=== PATIENT | female | born 1970 | race Caucasian/White ===

== ENCOUNTER → 2018-12-05 07:24 | Outpatient (CLI) | payer MEDICARE, SELFPAY ==
--- NOTE | 2018-12-05 07:37 | CT_ITS ---
PROCEDURE: CT ABDOMEN PELVIS W CON CLINICAL HISTORY: REGURGITATION,TUBE FEEDING DIET, PULMONARY ASPIRATION COMPARISON: No exams were available for comparison TECHNIQUE: 75 cc of intravenous contrast was utilized. Axial images obtained with sagittal and coronal reformats. All CT scans at the facility use one or more dose reduction, viz: automated exposure control, ma/kV adjustment per patient size (including targeted exams where dose is matched to indication, i.e. head), or iterative reconstruction technique. FINDINGS: Lower lung covarrubias show some linear strands hazy increased density in the posterior segment of both lower lobes. Liver, gallbladder, pancreas and adrenal glands are normal. Spleen is normal except there is a 5 millimeter round hypodense focus along the anterior midportion of the spleen. The remainder of the spleen is normal. Kidneys are normal. There is no aortic dilatation. The balloon at the tip of the gastrostomy tube is within the inferior lumen of the distal body of the stomach area. The sacrum is in the right upper quadrant of the abdomen and the appendix is not well visualized. There is no free air or ascites. There is a large amount of fecal density in the rectosigmoid area, and rectum causing displacement of the uterus towards the left anterior aspect. The uterus has a lobulated contour with a 2.3 centimeter hypodense nodule from the uterine fundus. There is no inflammatory changes or fluid in the pelvis. There is no acute osseous process. IMPRESSION: Bilateral lower lobe lung linear atelectasis or scarring. Gastrostomy tube is within the lumen of the stomach. Nonspecific small 5 millimeter hypodense splenic lesion. This is likely benign although consider follow-up CT at 6 months to confirm stability. Nonvisualized appendix. Large amount of feces in the sigmoid and rectal area with mass effect upon the uterus. Uterine fundal fibroid discussed above. Dictated by: Geovanny Balderrama 12/05/2018 10:36 Electronically signed by Geovanny Balderrama in [place] 12/05/2018 10:36
== END ==
PROVIDERS: PCP Family Medicine; Visit Provider Nurse Practitioner Family
DX: R11.10 Vomiting, unspecified (principal); Z78.9 Other specified health status; T65.94XA Toxic effect of unspecified substance, undetermined, initial encounter
CPT/HCPCS: 74177; Q9967

== ENCOUNTER → 2019-04-02 11:14 | Outpatient (POV) | payer MEDICARE, SELFPAY | PROVIDERS: Visit Provider Nurse Practitioner Family | DX: Z00.00 Encounter for general adult medical examination without abnormal findings (principal) ==

== ENCOUNTER → 2019-09-17 10:16 | Outpatient (POV) | payer MEDICARE, MEDICAID, SELFPAY | PROVIDERS: Visit Provider Nurse Practitioner Family | DX: Z00.00 Encounter for general adult medical examination without abnormal findings (principal) ==

== ENCOUNTER → 2020-03-17 10:48 | Outpatient (POV) | payer MEDICARE, MEDICAID, SELFPAY | PROVIDERS: Visit Provider Nurse Practitioner Family | DX: Z00.00 Encounter for general adult medical examination without abnormal findings (principal) ==

== ENCOUNTER 2022-12-11 11:34 | Emergency (ER) | payer MEDICARE, MEDICAID, SELFPAY ==
[2022-12-11 11:34] VITALS: BP 117/66; PULSE 70; RESP 18; TEMP 37.1; O2SAT 93; BMI 22.2
--- NOTE | 2022-12-11 11:46 | PC.NURSE ---
Dr. Rae at bs for pt eval
--- NOTE | 2022-12-11 11:49 | XR_ITS ---
PROCEDURE INFORMATION: Exam: XR Abdomen Exam date and time: 12/11/2022 12:37 PM Age: 52 years old Clinical indication: Device placement; Gi device; Gastrostomy, other; Prior surgery; Surgery date: 6+ months; Surgery type: G tube placement; Additional info: G tube displacement, determine if g tube is still working. Image of immediate injection of gastroview. TECHNIQUE: Imaging protocol: Radiologic exam of the abdomen. Views: Frontal supine view of the abdomen. 1 View. COMPARISON: CT ABDOMEN PELVIS W CON 12/05/2018 9:41 AM FINDINGS: Tubes, catheters and devices: Contrast opacification of the gastric tube, gastric lumen and proximal duodenum lumen. Gastrointestinal tract: Dilated gas-filled colon. Sigmoid colon and rectum are beyond the field of view for the study. Bones/joints: Unremarkable. IMPRESSION: 1. Gastric tube located within the stomach. 2. Dilated gas-filled colon may indicate distal obstruction. Sigmoid colon and rectum are beyond the field of view for the study.
--- NOTE | 2022-12-11 11:50 | HMH.EDGENADL ---
Discharge Plan Disposition Patient Disposition: Xfer SNF Condition: Good Prescriptions Prescriptions: No Action polyethylene glycol 3350 17 GM powder in packet 17 gm G-tube DAILY citalopram 10 MG tablet 10 mg G-tube DAILY Rx Instructions: GIVE WITH 20MG TABLET TO EQUAL 30MG spironolactone 100 MG tablet 100 mg G-tube DAILY simvastatin 10 MG tablet 10 mg G-tube DAILY aspirin 81 MG tablet,delayed release (DR/EC) 81 mg G-tube DAILY citalopram 20 MG tablet 20 mg G-tube DAILY Rx Instructions: GIVE WITH 10MG TABLET TO EQUAL 30MG valproic acid (as sodium salt) 250 MG/5ML solution 125 mg G-tube HS baclofen 10 MG tablet 10 mg G-tube BID ranitidine HCl 150 MG tablet 150 mg G-tube BID diphenhydramine HCl 25 MG tablet 12.5 mg G-tube BID dipyridamole 50 MG tablet 50 mg G-tube DAILY metoprolol tartrate 25 MG tablet 25 mg G-tube DAILY nitrofurantoin monohyd/m-cryst 100 MG capsule 100 mg G-tube BID Rx Instructions: START DATE 03/25/19 TAKE FOR 10 DAYS Lactobacillus acidoph-L.bulgar 1 EACH tablet 1 tab G-tube BID dextromethorphan-quinidine 20 MG-10MG capsule 1 tab G-tube BID calcium-vitamin D3-vitamin K 1 EACH tablet,chewable 800 mg G-tube DAILY guaifenesin 600 MG tablet extended release 12hr 600 mg PO BID prucalopride 2 MG tablet 2 mg G-tube DAILY Miscellaneous [Unknown Home Medication] 1 EACH Each 60 ml G-tube BID Rx Instructions: HOUSE SUPPLEMENT 60 ML BID FOR WEIGHT MANAGEMENT acetaminophen 325 MG suppository 650 mg * Q4H PRN (Reason: pain/fever) ipratropium-albuterol 3 ML solution for nebulization 3 ml IH DAILY PRN (Reason: breathing) albuterol sulfate 2.5 MG/NEB solution for nebulization 2.5 mg IH DAILY PRN (Reason: breathing) bisacodyl 10 MG suppository 10 mg RC DAILYP PRN (Reason: Constipation) hyoscyamine sulfate 0.125 MG tablet 0.125 mg PO DAILY PRN (Reason: bowels) ibuprofen 100 MG/5 ML suspension 600 mg PO DAILY PRN (Reason: pain) peg 400-propylene glycol 10 ML drops,gel 10 ml OP DAILY PRN (Reason: eyes) Referrals Follow up/Referrals: Rogelio Kirk [Primary Care Provider] - See instructions Griffin Livingston MD [Staff Physician] - See instructions (She has G-tube in place, placed 14 years ago, has been lost to follow-up and has had G-tube replaced multiple times in many different emergency departments, mother of the patient would like this followed up in clinic for possible replacement) Activity Restrictions/Add. Instructions Additional Instructions/Restrictions: Please follow-up with your primary care provider. Please return to the emergency department if you develop any new or worsening symptoms or become concerned for your health. Patient is appropriate for transfer back to her longterm facility. Clinical Impressions Clinical Impression: Dislodged gastrostomy tube Discharge ED Provider: Mehrdad Rae I General Adult HPI General Chief complaint: Recheck/Abnormal Lab/Rx Stated complaint: g tube dislodged Time Seen by Provider: 12/11/22 11:49 History of Present Illness HPI narrative: Patient is a 52-year-old female with history of stroke, G-tube dependence presenting to the emergency department from her longterm with G-tube displacement. History was largely conducted with the transportation crew given patient's baseline mental status. They report that patient's G-tube was displaced this morning. Patient is otherwise been in her normal state of health, no other new complaints. Denies any recent vomiting. Patient does receive tube feeds. Patient normally has an 18 [place] G-tube in place. Related Data Home Medications Medication Instructions Recorded Confirmed Lactobacillus acidoph-L.bulgaricus 1 tab G-tube BID PROBIOTIC 04/05/19 04/11/19 1 million cell tablet Miscellaneous [Unknown Home
[2022-12-11 12:09] VITALS: BP 117/66; PULSE 70; RESP 18; TEMP 37.1; O2SAT 93
--- NOTE | 2022-12-11 12:21 | PC.NURSE ---
RAD at BS for KUB
--- NOTE | 2022-12-11 12:23 | PC.NURSE ---
rad at bs for portable xray
[2022-12-11 12:30] VITALS: BP 138/74; PULSE 70; O2SAT 96
[2022-12-11 13:00] VITALS: BP 133/82; PULSE 72; O2SAT 94
--- NOTE | 2022-12-11 13:28 | PC.NURSE ---
called EMS for transport back to [facility]
--- NOTE | 2022-12-11 13:40 | PC.NURSE ---
Called report to [facility] to [place] [facility]
--- NOTE | 2022-12-11 13:58 | PC.NURSE ---
[facility] here for pt transport back [place]
[2022-12-11 14:17] VITALS: BP 117/66; PULSE 70; RESP 18; TEMP 37.1; O2SAT 93
== END 2022-12-11 14:17 ==
PROVIDERS: Emergency Provider Emergency Medicine; PCP Family Medicine
DX: T85.528A Displacement of other gastrointestinal prosthetic devices, implants and grafts, initial encounter (principal); I25.10 Atherosclerotic heart disease of native coronary artery without angina pectoris; I11.9 Hypertensive heart disease without heart failure; K21.9 Gastro-esophageal reflux disease without esophagitis; E78.5 Hyperlipidemia, unspecified; Z86.73 Personal history of transient ischemic attack (TIA), and cerebral infarction without residual deficits
CPT/HCPCS: 74018; 99284

== ENCOUNTER 2023-01-08 09:52 | Emergency (ER) | payer MEDICARE, MEDICAID, SELFPAY ==
[2023-01-08 09:52] VITALS: BP 105/70; PULSE 73; RESP 17; TEMP 36.5; O2SAT 95; BMI 20.1
--- NOTE | 2023-01-08 10:05 | PC.NURSE ---
dr villarreal at bedside for evaluation
--- NOTE | 2023-01-08 10:05 | PC.NURSE ---
Dr. Turner at BS for pt eval
--- NOTE | 2023-01-08 10:10 | PC.NURSE ---
G-TUBE FLUSHED WITH ABOUT 40MLS OF STERILE WATER WITHOUT DIFFICULTY. PLACEMENT VERIFIED WITH AUSCULTATION AND RETURN OF FEEDING. PT TOLERATED WELL
--- NOTE | 2023-01-08 10:19 | PC.NURSE ---
mother at bedside
[2023-01-08 10:30] VITALS: BP 121/68; PULSE 68; O2SAT 96
--- NOTE | 2023-01-08 10:45 | HMH.EDGENADL ---
Discharge Plan Disposition Patient Disposition: Home, Self-Care Prescriptions Prescriptions: No Action polyethylene glycol 3350 17 GM powder in packet 17 g G-tube DAILY citalopram 10 MG tablet 10 mg G-tube DAILY Rx Instructions: GIVE WITH 20MG TABLET TO EQUAL 30MG spironolactone 100 MG tablet 100 mg G-tube DAILY simvastatin 10 MG tablet 10 mg G-tube DAILY aspirin 81 MG tablet,delayed release (DR/EC) 81 mg G-tube DAILY citalopram 20 MG tablet 20 mg G-tube DAILY Rx Instructions: GIVE WITH 10MG TABLET TO EQUAL 30MG valproic acid (as sodium salt) 250 MG/5ML solution 125 mg G-tube HS baclofen 10 MG tablet 10 mg G-tube BID ranitidine HCl 150 MG tablet 150 mg G-tube BID diphenhydramine HCl 25 MG tablet 12.5 mg G-tube BID dipyridamole 50 MG tablet 50 mg G-tube DAILY metoprolol tartrate 25 MG tablet 25 mg G-tube DAILY nitrofurantoin monohyd/m-cryst 100 MG capsule 100 mg G-tube BID Rx Instructions: START DATE 03/25/19 TAKE FOR 10 DAYS Lactobacillus acidoph-L.bulgar 1 EACH tablet 1 tab G-tube BID dextromethorphan-quinidine 20 MG-10MG capsule 1 tab G-tube BID calcium-vitamin D3-vitamin K 1 EACH tablet,chewable 800 mg G-tube DAILY guaifenesin 600 MG tablet extended release 12hr 600 mg PO BID prucalopride 2 MG tablet 2 mg G-tube DAILY Miscellaneous [Unknown Home Medication] 1 EACH Each 60 ml G-tube BID Rx Instructions: HOUSE SUPPLEMENT 60 ML BID FOR WEIGHT MANAGEMENT acetaminophen 325 MG suppository 650 mg * Q4H PRN (Reason: pain/fever) ipratropium-albuterol 3 ML solution for nebulization 3 ml inhalation DAILY PRN (Reason: breathing) albuterol sulfate 2.5 MG/NEB solution for nebulization 2.5 mg inhalation DAILY PRN (Reason: breathing) bisacodyl 10 MG suppository 10 mg ME DAILYP PRN (Reason: Constipation) hyoscyamine sulfate 0.125 MG tablet 0.125 mg PO DAILY PRN (Reason: bowels) ibuprofen 100 MG/5 ML suspension 600 mg PO DAILY PRN (Reason: pain) peg 400-propylene glycol 10 ML drops,gel 10 ml ophthalmic (eye) DAILY PRN (Reason: eyes) Referrals Follow up/Referrals: Provider,Referral, MD [Primary Care Provider] - See instructions Activity Restrictions/Add. Instructions Additional Instructions/Restrictions: Your G-tube had a clogged Which is cleaned out and is now functioning appropriately. No other concerns noted please follow-up with Dr. Turcios and back to the emergency department with any other concerns. Clinical Impressions Clinical Impression: Gastrostomy tube dysfunction Discharge ED Provider: Nilesh Turner General Adult HPI General Chief complaint: Recheck/Abnormal Lab/Rx Stated complaint: G-tube displaced Time Seen by Provider: 01/08/23 10:05 Mode of Arrival: EMS Source of Information: EMS Limitations: No Limitations Description of Symptoms (Recalled from ER Triage Doc. by RN): PT BROUGHT IN VIA EMS FROM [facility], STAFF REPORTS BLEEDING FROM G-TUBE SITE AND UNABLE TO FLUSH G-TUBE THIS AM. PT WITHOUT COMPLAINTS History of Present Illness HPI narrative: Patient is a 52-year-old female brought in from [facility] has a history of being G-tube dependent and was sent to the emergency department because her G-tube was unable to be flushed and therefore medications were not able to be given. Related Data Home Medications Medication Instructions Recorded Confirmed Lactobacillus acidoph-L.bulgaricus 1 tab G-tube BID PROBIOTIC 04/05/19 01/07/23 1 million cell tablet Miscellaneous [Unknown Home 60 ml G-tube BID WEIGHT MANAGEMENT 04/05/19 01/07/23 Medication] acetaminophen 325 mg rectal 650 mg * Q4H PRN pain/fever 04/05/19 01/07/23 suppository albuterol sulfate 2.5 mg/3 mL 2.5 mg inhalation DAILY PRN 04/05/19 01/07/23 (0.083 %) solution for nebulization breathing aspirin 81 mg tablet
[2023-01-08 11:00] VITALS: BP 118/65; PULSE 74; O2SAT 93
[2023-01-08 11:10] VITALS: BP 118/65; PULSE 81; RESP 16; TEMP 36.6; O2SAT 93
--- NOTE | 2023-01-08 11:11 | PC.NURSE ---
REPORT CALLED TO MELVA AT [facility].
--- NOTE | 2023-01-08 11:13 | PC.NURSE ---
[facility] ems here to transport pt back to [facility].
== END 2023-01-08 11:25 | disposition home or self-care (01) ==
PROVIDERS: Emergency Provider Student in an Organized Health Care Education/Training Program
DX: K94.23 Gastrostomy malfunction (principal); I25.10 Atherosclerotic heart disease of native coronary artery without angina pectoris; I11.9 Hypertensive heart disease without heart failure; E78.5 Hyperlipidemia, unspecified; K21.9 Gastro-esophageal reflux disease without esophagitis; K22.4 Dyskinesia of esophagus; Z86.73 Personal history of transient ischemic attack (TIA), and cerebral infarction without residual deficits
CPT/HCPCS: 99282

== ENCOUNTER 2024-03-14 16:16 | Observation (INO) | payer MEDICARE, MEDICAID, SELFPAY ==
[2024-03-14 16:16] VITALS: BP 138/85; PULSE 103; RESP 20; TEMP 36.2; O2SAT 91; BMI 22.8
[2024-03-14 16:30] VITALS: BP 147/87; PULSE 104; O2SAT 94
--- NOTE | 2024-03-14 16:55 | ED_ITS ---
Discharge Plan Disposition Patient Disposition: Admitted Clinical Impressions Clinical Impression: Constipation Discharge ED Provider: Biju [facility] Adult HPI General Chief complaint: Recheck/Abnormal Lab/Rx Stated complaint: Abdominal Distension Time Seen by Provider: 03/14/24 16:55 Mode of Arrival: EMS Source of Information: EMS and Medical Record Limitations: Language Barrier Description of Symptoms (Recalled from ER Triage Doc. by RN): Pt. presents to the ED via EMS due to leakage around her GTube. She comes from [facility]. She is non-verbal, but the jail reports abdominal distension and hypoactive in bowel sounds since this morning. When asked if she has abdominal pain, she shakes her head no. History of Present Illness HPI narrative: Patient is a 53 nonverbal female with history of G-tube placement who presents for abdominal distention. History unable to be obtained by patient due to nonverbal status however mother reports concerns for worsening abdominal distention over the past day. No fevers or chills. Patient is overall not appear to be in pain. No known exacerbating relieving factors. No other concerns at this time. Please note that above description of symptoms, in this electronic medical record under categorization of recalled from ER triage doctor by RN are reflective of an initial nursing assessment, however, is not reflective of my full history and physical exam that was personally taken and clarified. Consequentially, this preceding description of symptoms, which may include the patient's categorized chief complaint in the EMR, do not reflect my personal clinical impression, and the ultimate description of history of present illness and patient stated complaints should be deferred to this section of the note. Unless stated otherwise or congruent with this section of the note, additional signs, symptoms, or incongruence should be interpreted as inaccurate with my clinical impression. Related Data Home Medications ?Medication ?Instructions ?Recorded ?Confirmed Lactobacillus acidoph-L.bulgaricus 1 tab G-tube BID PROBIOTIC 04/05/19 03/15/24 1 million cell tablet Miscellaneous [Unknown Home 60 ml G-tube BID 04/05/19 03/15/24 Medication] aspirin 81 mg tablet,delayed 81 mg G-tube DAILY 04/05/19 03/15/24 release baclofen 10 mg tablet 10 mg G-tube BID 04/05/19 03/15/24 calcium 500 mg-vitamin D3 1,000 800 mg G-tube DAILY Supplement 04/05/19 03/15/24 unit-vitamin K 40 mcg chewable tablet citalopram 10 mg tablet 10 mg G-tube DAILY 04/05/19 03/15/24 citalopram 20 mg tablet 20 mg G-tube DAILY 04/05/19 03/15/24 dextromethorphan 20 mg-quinidine 1 tab G-tube BID 04/05/19 03/15/24 10 mg capsule dipyridamole 50 mg tablet 50 mg G-tube DAILY CVA 04/05/19 03/15/24 peg 400-propylene glycol 0.4 %-0.3 10 ml ophthalmic (eye) DAILY PRN 04/05/19 03/15/24 % eye gel drops Dry Eyes polyethylene glycol 3350 17 gram 17 g G-tube DAILY 04/05/19 03/15/24 oral powder packet prucalopride 2 mg tablet 2 mg G-tube DAILY 04/05/19 03/15/24 simvastatin 10 mg tablet 10 mg G-tube DAILY Cholesterol 04/05/19 03/15/24 valproic acid (as sodium salt) 250 125 mg G-tube HS 04/05/19 03/15/24 mg/5 mL oral solution erythromycin ethylsuccinate 200 250 mg PO DAILY 03/15/24 03/15/24 mg/5 mL oral powder for suspension famotidine 20 mg tablet 20 mg PO BID 03/15/24 03/15/24 ferrous sulfate 300 mg (60 mg 160 mg PO MOWEFR 03/15/24 03/15/24 iron)/5 mL oral liquid geriatric multivitamin-min 1 tab PO DAILY 03/15/24 03/15/24 guaifenesin 100 mg/5 mL oral 600 mg PO BID 03/15/24 03/15/24 liquid (Adult Tussin Chest Congestion) linaclotide 145 mcg capsule 145 mcg PO DAILY 03/15/24 03/15/24 (Linzess) omega-3 fatty acids 1,000 mg 1,000 mg PO DAILY 03/15/24 03/15/24 capsule sodium phosphates 19 gram-7 118 ml WI DAILY PRN Constipation 03/15/24 03/15/24 gram/118 mL enema (Fleet Enema) spironolactone 50 mg tablet 50 mg PO DAILY 03/15/24 03/15/24 Allergies Allergy/AdvReac Type Severity Reaction Status Date / Time atropine (From Lomotil) Allergy Unknown Verified 02/02/23 13:44 diphenoxylate (From Lomotil) Allergy Unknown Verified 02/02/23 13:44 Sulfa (Sulfonamide Allergy Unknown Verified 02/02/23 13:44 Antibiotics) [facility] Disclaimer: The information contained in this section may have been updated after the patient was seen, as this information can be updated by other users. Medical History Anemia Aspiration pneumonia CAD (coronary artery disease) CVA (cerebral vascular accident) Dyskinesia of esophagus Feeding by G-tube GERD (gastroesophageal reflux disease) HLD (hyperlipidemia) HTN (hypertension) Limitation due to disability Mild intellectual disabilities Social History Smoking Status: Never smoker alcohol intake: never substance use type: denies use current occupational status: disabled Travel in the last 8 weeks: None household members: none housing: assisted living facility current occupational exposures/hazards: No caffeine: No Have you lived/traveled outside [place] in past 30 days?: No Contact w/someone who lives/traveled outside US past 30 days?: No Exposure to someone with infectious disease in past 14 days?: No Do you have a fever (greater than 100.4 F or 38 C)?: No Have you tested positive for COVID-19: No Exposed to someone with COVID-19 in past 14 days?: No Do you have a sore throat?: No Do you have a cough?: No Do you have any weakness?: No Do you have any diarrhea?: No Are you experiencing any unusual bleeding?: No Do you have any muscle aches/pain?: No Do you have any abdominal pain?: Yes Are you experiencing loss of taste or smell?: No Other Medical History Have you received the Flu Vaccine for this season: Yes Have you received the Pneumonia Vaccine: No ROS Obtained: Yes other As per HPI Physical Exam General General appearance: alert and in no apparent distress Head Head exam: atraumatic and normocephalic Eye Eye exam: Present normal appearance Neck Neck exam: Present normal inspection Chest Chest inspection: Present normal inspection and symmetric chest wall rise Respiratory Respiratory exam: Present normal lung sounds bilaterally; Absent respiratory distress Cardiovascular Cardiovascular exam: Present regular rate and normal rhythm Abdominal Exam Abdominal exam: Present distention Neurological Exam Neurological exam: Present alert Psychiatric Psychiatric exam: Present normal affect Skin Skin exam: Present warm and dry Medical Decision Making Medical Records Medical records reviewed: Yes I reviewed the patient's medical records. Screening: Per USPSTF and CDC recommendations, given the prevalence of disease in our region, it is our hospital?s policy to screen for HIV and viral Hepatitis for all patients aged 18 and over and those with ongoing risk factors. [facility] Inquiry Pt receiving controlled substance: No Vital Signs: 03/14/24 16:16 03/14/24 16:30 03/14/24 17:00 Temperature 97.1 F L Temperature Source Axillary Pulse Rate 104 H 100 H Pulse Rate [Right Brachial] 103 H Respiratory Rate 20 Blood Pressure 147/87 H 146/87 H Blood Pressure [Right Arm] 138/85 Blood Pressure Mean [Right Arm] 102 Blood Pressure Source Blood Pressure Source [Right Arm] Automatic Cuff Blood Pressure Position [Right Arm] Sitting 02 Sat by Pulse Oximetry 91 L 94 L 95 Oxygen Delivery Method Room Air Room Air Room Air 03/14/24 17:30 03/14/24 18:00 03/14/24 21:01 Temperature Temperature Source Pulse Rate 105 H 95 H Pulse Rate [Right Brachial] Respiratory Rate Blood Pressure 151/97 H 158/91 H Blood Pressure [Right Arm] Blood Pressure Mean [Right Arm] Blood Pressure Source Blood Pressure Source [Right Arm] Blood Pressure Position [Right Arm] 02 Sat by Pulse Oximetry 92 L 90 L Oxygen Delivery Method Room Air 03/14/24 21:57 Temperature 97.1 F L Temperature Source Oral Pulse Rate 91 H Pulse Rate [Right Brachial] Respiratory Rate 18 Blood Pressure 153/81 H Blood Pressure [Right Arm] Blood Pressure Mean [Right Arm] Blood Pressure Source Automatic Cuff Blood Pressure Source [Right Arm] Blood Pressure Position [Right Arm] 02 Sat by Pulse Oximetry Oxygen Delivery Method Room Air Lab Data Lab Results 03/14/24 17:17: WBC 14.6 H, RBC 5.25, Hgb 14.1, Hct 44.2, MCV 84.2, MCH 26.9 L, MCHC 31.9, RDW 15.2, Plt Count 184, MPV 10.8 H, Neut % (Auto) 86.8 H, Lymph % (Auto) 4.4 L, [place] % (Auto) 8.4, Eos % (Auto) 0.0 L, Baso % (Auto) 0.1, Neut # (Auto) 12.7 H, Lymph # (Auto) 0.6 L, [place] # (Auto) 1.2 H, Eos # (Auto) 0.0, Baso # (Auto) 0.0, Sodium 140, Potassium 3.7, Chloride 103, Carbon Dioxide 27, Anion Gap 13.7, BUN 28 H, Creatinine 0.60, Estimated Creat Clear 91, Estimated GFR 105, Est GFR ( Amer) 127, Glucose 125 H, Calcium 9.2, Total Bilirubin 0.5, AST 39 H, ALT 28, Alkaline Phosphatase 107, Total Protein 7.4, Albumin 4.2, Globulin 3.2, Albumin/Globulin Ratio 1.3, Lipase 60 03/16/24 06:39 03/16/24 06:39 Orders (Tests/Meds): ED MEDICATIONS Generic Name Dose Route Start Last Admin Trade Name Freq PRN Reason Stop Dose Admin Acetaminophen 650 mg 03/14/24 22:18 Acetaminophen 325mg Tab PO 04/13/24 22:17 Q4HP PRN Fever or Mild Pain (1-3) Aspirin 81 mg 03/16/24 09:00 03/16/24 09:17 Aspirin 81mg Chewable Tablet PO 04/15/24 08:59 81 mg DAILY TRACY Administration Baclofen 10 mg 03/15/24 09:00 03/16/24 20:12 Baclofen 10mg Tablet G-TUBE 04/14/24 08:59 10 mg BID TRACY Administration Bisacodyl 10 mg 03/15/24 03:30 03/16/24 02:59 Bisacodyl 10mg Supp RC 04/14/24 03:29 10 mg DAILYP TRACY Administration Citalopram Hydrobromide 30 mg 03/15/24 09:00 03/16/24 09:18 Citalopram 20mg Tablet PO 04/14/24 08:59 30 mg DAILY TRACY Administration Dipyridamole 50 mg 03/15/24 09:00 03/16/24 09:17 Dipyridamole 50mg Tablet PO 04/14/24 08:59 50 mg DAILY TRACY Administration Enoxaparin Sodium 40 mg 03/15/24 09:00 03/16/24 09:19 Enoxaparin 40mg/0.4ml Syringe SUBCUT 04/14/24 08:59 40 mg DAILY TRACY Administration Dextrose/Lactated Ringer's 1,000 mls @ 75 mls/hr 03/16/24 10:45 03/16/24 12:13 Dextrose 5% In Lactated Ringer's 1000ml IV 04/15/24 10:44 75 mls/hr .[id number] TRACY Administration Ondansetron HCl 4 mg 03/14/24 22:18 Ondansetron 4mg/2ml Vial IV 04/13/24 22:17 Q8HP PRN Nausea Polyethylene Glycol 17 gm 03/17/24 09:00 Polyethylene Glycol 3350 17 Gm Packet PO 04/16/24 08:59 DAILY TRACY Pravastatin Sodium 20 mg 03/15/24 21:00 03/16/24 20:12 Pravastatin 20mg Tab PO 04/14/24 20:59 20 mg HS TRACY Administration Valproate Sodium 125 mg 03/15/24 21:00 03/16/24 20:13 Valproic Acid 250 Mg/5 Ml Roseann Udc G-TUBE 04/14/24 20:59 125 mg HS TRACY Administration Discontinued Medications Generic Name Dose Route Start Last Admin Trade Name Freq PRN Reason Stop Dose Admin Aspirin 81 mg 03/15/24 09:00 03/15/24 09:11 Aspirin Ec 81mg Tablet PO 04/14/24 08:59 81 mg DAILY TRACY Administration Citalopram Hydrobromide 10 mg 03/15/24 09:00 Citalopram 10mg Tablet PO 04/14/24 08:59 DAILY TRACY Dextrose 50 ml 03/16/24 08:03 03/16/24 08:08 Dextrose 50% 50ml Syringe (Crash Cart) IVP 03/16/24 08:04 50 ml ONCE ONE Administration Sodium Chloride 1,000 mls @ 999 mls/hr 03/14/24 21:10 03/15/24 00:04 Sod Chlor 0.9% 1000ml Bag IV 03/14/24 22:10 999 mls/hr .Q1H1M ONE Administration Sodium Chloride 1,000 mls @ 999 mls/hr 03/14/24 22:21 03/15/24 00:24 Sod Chlor 0.9% 1000ml Bag IV 03/14/24 23:21 999 mls/hr .Q1H1M ONE Administration Magnesium Sulfate 2 gm in 50 mls @ 50 mls/hr 03/16/24 08:05 03/16/24 09:19 Magnesium Sulfate 2gm/50ml Premix IV 03/16/24 09:04 50 mls/hr ONCE ONE Administration Iopamidol 75 ml 03/14/24 17:47 03/14/24 17:57 Iopamidol-370 (76%);100ml Bottle IV 03/14/24 17:48 75 ml ONCE ONE Administration Polyethylene Glycol/Electrolytes 4,000 ml 03/15/24 11:15 03/15/24 12:04 Peg-Electrolyte Soln 4000ml Bottle PO 03/15/24 11:16 4,000 ml ONCE ONE Administration Sodium Chloride 10 ml 03/14/24 17:47 03/14/24 17:57 Sodium Chloride 0.9% 10ml Syr (Rad Only) IV 03/14/24 17:48 10 ml ONCE ONE Administration ORDERS Category Date Time Status CT abdomen pelvis w con Stat Cat Scan 03/14/24 17:05 Completed CBC w/Auto Diff [Complete Blood Count Auto Diff] Stat Lab 03/14/24 17:17 Completed CMP [Comprehensive Metabolic Panel] Stat Lab 03/14/24 17:17 Completed Lipase Stat Lab 03/14/24 17:17 Completed Medical Decision Narrative: Patient with history and exam per above presenting for evaluation of abdominal distention in the setting of G-tube Diagnoses considered include bowel obstruction, constipation, G-tube malfunction, among others ED workup and treatment included: ED MEDICATIONS Generic Name Dose Route Start Last Admin Trade Name Freq PRN Reason Stop Dose Admin Acetaminophen 650 mg 03/14/24 22:18 Acetaminophen 325mg Tab PO 04/13/24 22:17 Q4HP PRN Fever or Mild Pain (1-3) Aspirin 81 mg 03/16/24 09:00 03/16/24 09:17 Aspirin 81mg Chewable Tablet PO 04/15/24 08:59 81 mg DAILY TRACY Administration Baclofen 10 mg 03/15/24 09:00 03/16/24 20:12 Baclofen 10mg Tablet G-TUBE 04/14/24 08:59 10 mg BID TRACY Administration Bisacodyl 10 mg 03/15/24 03:30 03/16/24 02:59 Bisacodyl 10mg Supp RC 04/14/24 03:29 10 mg DAILYP TRACY Administration Citalopram Hydrobromide 30 mg 03/15/24 09:00 03/16/24 09:18 Citalopram 20mg Tablet PO 04/14/24 08:59 30 mg DAILY TRACY Administration Dipyridamole 50 mg 03/15/24 09:00 03/16/24 09:17 Dipyridamole 50mg Tablet PO 04/14/24 08:59 50 mg DAILY TRACY Administration Enoxaparin Sodium 40 mg 03/15/24 09:00 03/16/24 09:19 Enoxaparin 40mg/0.4ml Syringe SUBCUT 04/14/24 08:59 40 mg DAILY TRACY Administration Dextrose/Lactated Ringer's 1,000 mls @ 75 mls/hr 03/16/24 10:45 03/16/24 12:13 Dextrose 5% In Lactated Ringer's 1000ml IV 04/15/24 10:44 75 mls/hr .[id number] TRACY Administration Ondansetron HCl 4 mg 03/14/24 22:18 Ondansetron 4mg/2ml Vial IV 04/13/24 22:17 Q8HP PRN Nausea Polyethylene Glycol 17 gm 03/17/24 09:00 Polyethylene Glycol 3350 17 Gm Packet PO 04/16/24 08:59 DAILY TRACY Pravastatin Sodium 20 mg 03/15/24 21:00 03/16/24 20:12 Pravastatin 20mg Tab PO 04/14/24 20:59 20 mg HS TRACY Administration Valproate Sodium 125 mg 03/15/24 21:00 03/16/24 20:13 Valproic Acid 250 Mg/5 Ml Roseann Udc G-TUBE 04/14/24 20:59 125 mg HS TRACY Administration Discontinued Medications Generic Name Dose Route Start Last Admin Trade Name Freq PRN Reason Stop Dose Admin Aspirin 81 mg 03/15/24 09:00 03/15/24 09:11 Aspirin Ec 81mg Tablet PO 04/14/24 08:59 81 mg DAILY TRACY Administration Citalopram Hydrobromide 10 mg 03/15/24 09:00 Citalopram 10mg Tablet PO 04/14/24 08:59 DAILY TRACY Dextrose 50 ml 03/16/24 08:03 03/16/24 08:08 Dextrose 50% 50ml Syringe (Crash Cart) IVP 03/16/24 08:04 50 ml ONCE ONE Administration Sodium Chloride 1,000 mls @ 999 mls/hr 03/14/24 21:10 03/15/24 00:04 Sod Chlor 0.9% 1000ml Bag IV 03/14/24 22:10 999 mls/hr .Q1H1M ONE Administration Sodium Chloride 1,000 mls @ 999 mls/hr 03/14/24 22:21 03/15/24 00:24 Sod Chlor 0.9% 1000ml Bag IV 03/14/24 23:21 999 mls/hr .Q1H1M ONE Administration Magnesium Sulfate 2 gm in 50 mls @ 50 mls/hr 03/16/24 08:05 03/16/24 09:19 Magnesium Sulfate 2gm/50ml Premix IV 03/16/24 09:04 50 mls/hr ONCE ONE Administration Iopamidol 75 ml 03/14/24 17:47 03/14/24 17:57 Iopamidol-370 (76%);100ml Bottle IV 03/14/24 17:48 75 ml ONCE ONE Administration Polyethylene Glycol/Electrolytes 4,000 ml 03/15/24 11:15 03/15/24 12:04 Peg-Electrolyte Soln 4000ml Bottle PO 03/15/24 11:16 4,000 ml ONCE ONE Administration Sodium Chloride 10 ml 03/14/24 17:47 03/14/24 17:57 Sodium Chloride 0.9% 10ml Syr (Rad Only) IV 03/14/24 17:48 10 ml ONCE ONE Administration ORDERS Category Date Time Status CT abdomen pelvis w con Stat Cat Scan 03/14/24 17:05 Completed CBC w/Auto Diff [Complete Blood Count Auto Diff] Stat Lab 03/14/24 17:17 Completed CMP [Comprehensive Metabolic Panel] Stat Lab 03/14/24 17:17 Completed Lipase Stat Lab 03/14/24 17:17 Completed Labs were independently interpreted by me, significant for no leukocytosis, creatinine within normal limits Imaging was independently visualized and interpreted by me, significant for very large stool burden in the absence of bowel obstruction or acute immediate surgical pathology. Please refer to radiology report for full details. Patient will benefit from mission for further management. Patient was accepted for admission by hospitalist. Critical Care Critical Care Time Critical Care Time: No
[2024-03-14 17:00] VITALS: BP 146/87; PULSE 100; O2SAT 95
--- NOTE | 2024-03-14 17:05 | CT_ITS ---
PROCEDURE INFORMATION: Exam: CT Abdomen And Pelvis With Contrast Exam date and time: 03/14/2024 5:54 PM Age: 53 years old Clinical indication: Abdominal pain; Generalized; Additional info: HX g tube, abdominal distension, pain TECHNIQUE: Imaging protocol: Computed tomography of the abdomen and pelvis with contrast. Radiation optimization: All CT scans at this facility use at least one of these dose optimization techniques: automated exposure control; mA and/or kV adjustment per patient size (includes targeted exams where dose is matched to clinical indication); or iterative reconstruction. Contrast material: ISOVUE; Contrast volume: 75 ml; Contrast route: IV; COMPARISON: CT ABDOMEN PELVIS W CON 12/05/2018 9:41 AM FINDINGS: Tubes, catheters and devices: Gastrostomy tube well-positioned in the gastric antrum without gross complication or change. Lungs: Moderate atelectasis in the lung bases. Heart: Heart size upper limits of normal. Esophagus: The visualized distal esophagus is largely contracted without gross abnormality. Liver: Mild extrinsic compression on the anterior liver contour due to gaseous distension of the hepatic flexure of the colon. Liver contour otherwise unremarkable. No mass lesions. No intrahepatic biliary ductal dilatation. Gallbladder and biliary ducts: Normal. No calcified stones. No ductal dilation. Pancreas: Normal. No inflammatory changes or ductal dilation. Spleen: There are 4 circumscribed low-density under enhancing lesions in the spleen measuring 5, 8, 10, and 12 mm, with indeterminate density features at 60-80 Hounsfield units. These are increased in size and number from 12/05/2018. Recommend evaluation with nonemergent MRI versus PET-CT. Adrenal glands: Normal. No adrenal mass. Kidneys and ureters: No acute abnormalities. No hydronephrosis or hydroureter. No urinary tract stones are identified. Small bilateral probable renal cortical cysts are present which do not require further evaluation. Stomach and bowel: The small bowel is nondilated with no gross abnormality. Severe gaseous distension of the colon with a few fluid levels in the mid to proximal colon and chronic dilatation of the distal sigmoid colon and rectum, with severe fecal distension of the rectum to 10 cm diameter. The findings suggest chronic rectal fecal impaction producing distal colonic obstruction. No volvulus. No perforation. No pneumatosis or portal gas. Appendix: The appendix is normal in caliber and demonstrates no evidence of appendicitis. Intraperitoneal space: No peritoneal free fluid or air. Vasculature: No acute process. No abdominal aortic aneurysm. Lymph nodes: No adenopathy. Urinary bladder: Unremarkable as visualized. Reproductive: Uterine fibroids measuring up to 2.8 cm in size, similar to 2019. Bones/joints: No acute osseous abnormalities. Chronic appearing hypertrophic ossification between the left ischial tuberosity and left femoral lesser trochanter which is new since 12/05/2018, possibly remote trochanteric avulsion versus remote partial avulsion of the common hamstring origin, and exuberant posttraumatic ossification. Soft tissues: No acute soft tissue abnormalities. IMPRESSION: 1. Severe rectal fecal impaction with rectum measuring up to 10 cm diameter producing distal colonic obstruction with moderate gaseous distension and fluid levels in the mid to proximal colon. No perforation. 2. There are 4 circumscribed low-density lesions in the spleen with indeterminate density features and increased size/number since 2019. Favor complex splenic cysts although not definitive. Recommend nonemergent MRI versus PET-CT. 3. Uterine fibroids. 4. Additional nonemergent findings detailed above. COMMENTS: Consistent with the [employer]'s Incidental Findings Committee white paper (J Am Wayne Radiol 2018): Any incidental renal lesion less than 1 cm or classified as too small to characterize, or any incidental cystic renal lesion characterized as simple-appearing, is likely benign. No follow-up imaging is recommended for these lesions per consensus recommendations based on imaging criteria.
[2024-03-14 17:27] LABS: Basophils % 0.1 % (0.1-2.0); Hematocrit 44.2 % (37.0-47.0); Hemoglobin 14.1 g/dL (12.2-16.2); Lymphocytes # 0.6 K/mm3 (0.7-4.5); Lymphocytes % 4.4 % (10-50); Mean Corpuscular HGB Conc 31.9 g/dL (31.8-35.4); Mean Corpuscular Hemoglobin 26.9 pg (27.0-31.2); Mean Corpuscular Volume 84.2 fl (81-99); Mean Platelet Volume 10.8 fl (7.4-10.4); Monocytes # 1.2 K/mm3 (0.1-1.0); Monocytes % 8.4 % (1.7-9.3); Neutrophils # 12.7 K/mm3 (1.8-7.8); Neutrophils % 86.8 % (37.0-80.0); Platelet Count 184 K/mm3 (142-424); Red Blood Count 5.25 M/mm3 (4.20-5.40); Red Cell Distribution Width 15.2 % (11.5-17.5); White Blood Count 14.6 K/mm3 (4.8-10.8)
[2024-03-14 17:30] VITALS: BP 151/97; PULSE 105; O2SAT 92
[2024-03-14 17:30] LABS: Albumin Level 4.2 g/dl (3.5-5.0); Chloride 103 mmol/L (98-107); Potassium 3.7 mmoL/L (3.5-5.1); Sodium 140 mmol/L (136-145)
[2024-03-14 17:33] LABS: Alanine Aminotransferase 28 U/L (12-78); Albumin/Globulin Ratio 1.3 (1.1-1.8); Alkaline Phosphatase 107 U/L (38-126); Anion Gap 13.7 mEq/L (5-15); Aspartate Amino Transferase 39 U/L (14-36); Bilirubin,Total 0.5 mg/dl (0.2-1.3); Blood Urea Nitrogen 28 mg/dl (7-17); Carbon Dioxide 27 mmol/L (22.0-30.0); Creatinine Clearance Estimated 91 mL/min (50-200); Estimated Glomerular Filt Rate 105 ml/min (>60); GFR (African American) 127 ML/MIN (>60); Globulin 3.2 g/dL (1.3-3.2); Lipase 60 U/L (23-300); Total Protein,Serum 7.4 g/dl (6.3-8.2)
[2024-03-14 17:34] LABS: Calcium 9.2 mg/dl (8.4-10.2); Glucose 125 mg/dl (74-100)
[2024-03-14] MEDS: IOPAMIDOL-370 (76%);100ML BOTTLE 75 ML IV (17:57)
[2024-03-14] MEDS: SODIUM CHLORIDE 0.9% 10ML SYR (RAD ONLY) 10 ML IV (17:57)
[2024-03-14 18:00] VITALS: BP 158/91; PULSE 95; O2SAT 90
[2024-03-14] MEDS: 0.9 % SODIUM CHLORIDE 1000ML 1,000 ML 999 ML IV (21:39)
[2024-03-14 21:57] VITALS: BP 153/81; PULSE 91; RESP 18; TEMP 36.2; O2SAT 91
--- NOTE | 2024-03-14 22:00 | PC.NURSE ---
Patient arrived to floor via stretcher from ED at 21:56.
--- NOTE | 2024-03-14 22:18 | P.HP_ITS ---
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 She is a resident at [facility] where they noticed abdominal distention and left-sided hypoactive bowel sounds. Due to developmental delays, patient unfortunately cannot provide history. Mother is at bedside who provides history. She notes patient has required a G-tube for feeding since her stroke about 15 years ago. They have followed up with Dr. Vargas for GI motility issues but had been lost to follow-up. Per my review, Dr. Vargas did colonoscopy and endoscopy and April 2019 where he found marked colonic dysmotility/inertia. Workup in the ED significant for WBC 14.6, CT abdomen/pelvis showing severe fecal impaction and 4 cm lesion in spleen. Case discussed with ED provider and decision was made to admit patient for severe symptomatic fecal impaction. [facility] Disclaimer: The information contained in this section may have been updated after the patient was seen, as this information can be updated by other users. Medical History Anemia Aspiration pneumonia CAD (coronary artery disease) CVA (cerebral vascular accident) Dyskinesia of esophagus Feeding by G-tube GERD (gastroesophageal reflux disease) HLD (hyperlipidemia) HTN (hypertension) Limitation due to disability Mild intellectual disabilities Social History Smoking Status: Never smoker alcohol intake: never substance use type: denies use current occupational status: disabled Travel in the last 8 weeks: None household members: none housing: assisted living facility current occupational exposures/hazards: No caffeine: No Have you lived/traveled outside US in past 30 days?: No Contact w/someone who lives/traveled outside US past 30 days?: No Exposure to someone with infectious disease in past 14 days?: No Do you have a fever (greater than 100.4 F or 38 C)?: No Have you tested positive for COVID-19: No Exposed to someone with COVID-19 in past 14 days?: No Do you have a sore throat?: No Do you have a cough?: No Do you have any weakness?: No Do you have any diarrhea?: No Are you experiencing any unusual bleeding?: No Do you have any muscle aches/pain?: No Do you have any abdominal pain?: Yes Are you experiencing loss of taste or smell?: No Other Medical History Have you received the Flu Vaccine for this season: Yes Have you received the Pneumonia Vaccine: No Meds Home Medications and Allergies Home Medications ?Medication ?Instructions ?Recorded ?Confirmed ?Type Lactobacillus acidoph-L.bulgaricus 1 tab G-tube BID PROBIOTIC 04/05/19 03/15/24 History 1 million cell tablet Miscellaneous [Unknown Home 60 ml G-tube BID WEIGHT MANAGEMENT 04/05/19 03/15/24 History Medication] acetaminophen 325 mg rectal 650 mg * Q4H PRN pain/fever 04/05/19 03/15/24 History suppository albuterol sulfate 2.5 mg/3 mL 2.5 mg inhalation DAILY PRN 04/05/19 03/15/24 History (0.083 %) solution for nebulization breathing aspirin 81 mg tablet,delayed 81 mg G-tube DAILY CVA 04/05/19 03/15/24 History release baclofen 10 mg tablet 10 mg G-tube BID RIGIDITY 04/05/19 03/15/24 History bisacodyl 10 mg rectal suppository 10 mg AL DAILYP PRN Constipation 04/05/19 03/15/24 History calcium 500 mg-vitamin D3 1,000 800 mg G-tube DAILY Supplement 04/05/19 03/15/24 History unit-vitamin K 40 mcg chewable tablet citalopram 10 mg tablet 10 mg G-tube DAILY Depression 04/05/19 03/15/24 History citalopram 20 mg tablet 20 mg G-tube DAILY Depression 04/05/19 03/15/24 History dextromethorphan 20 mg-quinidine 1 tab G-tube BID MOOD 04/05/19 03/15/24 History 10 mg capsule diphenhydramine HCl 25 mg tablet 12.5 mg G-tube BID SIDE EFFECTS 04/05/19 03/15/24 History REGLAN dipyridamole 50 mg tablet 50 mg G-tube DAILY CVA 04/05/19 03/15/24 History guaifenesin 600 mg tablet, 600 mg PO BID Congestion/chest 04/05/19 03/15/24 History extended release 12 hr congesti hyoscyamine sulfate 0.125 mg tablet 0.125 mg PO DAILY PRN bowels 04/05/19 02/02/23 History ibuprofen 100 mg/5 mL oral 600 mg PO DAILY PRN pain 04/05/19 03/15/24 History suspension ipratropium 0.5 mg-albuterol 3 mg 3 ml inhalation DAILY PRN breathing 04/05/19 03/15/24 History (2.5 mg base)/3 mL nebulization soln metoprolol tartrate 25 mg tablet 25 mg G-tube DAILY HTN 04/05/19 02/02/23 History nitrofurantoin 100 mg G-tube BID UTI 04/05/19 02/02/23 History monohydrate/macrocrystals 100 mg capsule peg 400-propylene glycol 0.4 %-0.3 10 ml ophthalmic (eye) DAILY PRN 04/05/19 03/15/24 History % eye gel drops eyes polyethylene glycol 3350 17 gram 17 g G-tube DAILY BOWELS 04/05/19 03/15/24 History oral powder packet prucalopride 2 mg tablet 2 mg G-tube DAILY BOWELS 04/05/19 02/02/23 History ranitidine HCl 150 mg tablet 150 mg G-tube BID GERD 04/05/19 02/02/23 History simvastatin 10 mg tablet 10 mg G-tube DAILY Cholesterol 04/05/19 03/15/24 History spironolactone 100 mg tablet 100 mg G-tube DAILY Edema 04/05/19 03/15/24 History valproic acid (as sodium salt) 250 125 mg G-tube HS MOOD 04/05/19 03/15/24 History mg/5 mL oral solution New Prescriptions to Start Prescriptions: Allergies Allergy/AdvReac Type Severity Reaction Status Date / Time atropine (From Lomotil) Allergy Unknown Verified 02/02/23 13:44 diphenoxylate (From Lomotil) Allergy Unknown Verified 02/02/23 13:44 Sulfa (Sulfonamide Allergy Unknown Verified 02/02/23 13:44 Antibiotics) Exam Data for Last 24 hours Vital signs and Labs for Last 24 Hours: Temp Pulse Resp BP Pulse Ox O2 Del Method 97.1 F L 91 H 18 153/81 H 90 L Room Air 03/14/24 21:57 03/14/24 21:57 03/14/24 21:57 03/14/24 21:57 03/14/24 18:00 03/14/24 21:57 Laboratory Results - last 24 hr 03/14/24 17:17: WBC 14.6 H, RBC 5.25, Hgb 14.1, Hct 44.2, MCV 84.2, MCH 26.9 L, MCHC 31.9, RDW 15.2, Plt Count 184, MPV 10.8 H, Neut % (Auto) 86.8 H, Lymph % (Auto) 4.4 L, [place] % (Auto) 8.4, Eos % (Auto) 0.0 L, Baso % (Auto) 0.1, Neut # (Auto) 12.7 H, Lymph # (Auto) 0.6 L, [place] # (Auto) 1.2 H, Eos # (Auto) 0.0, Baso # (Auto) 0.0, Sodium 140, Potassium 3.7, Chloride 103, Carbon Dioxide 27, Anion Gap 13.7, BUN 28 H, Creatinine 0.60, Estimated Creat Clear 91, Estimated GFR 105, Est GFR ( Amer) 127, Glucose 125 H, Calcium 9.2, Total Bilirubin 0.5, AST 39 H, ALT 28, Alkaline Phosphatase 107, Total Protein 7.4, Albumin 4.2, Globulin 3.2, Albumin/Globulin Ratio 1.3, Lipase 60 I & O for Last 24 hours: Intake & Output 03/11/24 03/12/24 03/13/24 03/14/24 23:59 23:59 23:59 23:59 Weight 53.07 kg Constitutional Constitutional: no acute distress Comments: Pleasant but mute due to developmental delays. *Routine HEENT Exam Head: Present normocephalic Eye: Present EOMI and PERRL ENT: Present mucous membranes moist *Routine Neck Exam Neck: Present supple; Absent lymphadenopathy *Routine Respiratory Exam Respiratory: Present CTA bilaterally *Routine Cardiovascular Exam Cardiovascular: Present RRR *Routine Abdominal Exam Abdominal: Present soft and normoactive bowel sounds; Absent tenderness Comments: G-tube in place without surrounding infection, leakage. *Routine Rectal Exam Rectal:: deferred *Routine Genitalia Exam Genitalia:: deferred *Routine Extremities Exam Extremities: Absent cyanosis, clubbing or edema *Routine Skin Exam Skin: Present warm; Absent rash *Routine Neurological Exam Neurological: Present alert and oriented X3 Assessment and Plan *Assessment and plan (1) Constipation: Status: Acute Category: Medical Code(s): K59.00 - Constipation, unspecified (2) Gastrostomy tube dysfunction: Status: Acute Category: Medical Code(s): K94.23 - Gastrostomy malfunction (3) Gastrostomy tube in place: Status: Acute Category: Medical Code(s): Z93.1 - Gastrostomy status (4) Developmental delay, severe: Status: Acute Category: Medical Code(s): R62.50 - Unspecified lack of expected normal physiological development in [facility] (5) Mood disorder: Status: Acute Category: Medical Code(s): F39 - Unspecified mood [affective] disorder Plan Sasha Miller is a 53-year-old female with medical history significant for developmental delays, 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 She is a resident at [facility] where they noticed abdominal distention and left-sided hypoactive bowel sounds. Due to developmental delays, patient unfortunately cannot provide history. Mother is at bedside who provides history. She notes patient has required a G-tube for feeding since her stroke about 15 years ago. They have followed up with Dr. Vargas for GI motility issues but had been lost to follow-up. Per my review, Dr. Vargas did colonoscopy and endoscopy and April 2019 where he found marked colonic dysmotility/inertia. Workup in the ED significant for WBC 14.6, CT abdomen/pelvis showing severe fecal impaction and 4 cm lesion in spleen. Case discussed with ED provider and decision was made to admit patient for severe symptomatic fecal impaction. #Severe fecal impaction #Colonic dysmotility/inertia #Large bowel obstruction ? Personally reviewed CT abdomen/pelvis shows severe fecal impaction measuring up to 10 cm in diameter with distal colonic obstruction. ? Colonoscopy in April [address] Vargas showed marked colonic dysmotility/inertia, recommended continuing promotility therapy with Reglan and Motegrity. Since lost to follow-up. ? Ordered soapsuds enema, with 2 large bowel movements. Daily bisacodyl 10 mg. ? Continue serial soapsuds enema every 4 hours, then consider starting oral bowel regimen. ? Nothing via G-tube at this time given large bowel obstruction due to fecal impaction. ? GI consulted, pending further recommendations. ? Patient is having bowel movements, we will hold off on general surgery consultation for now for LBO. ? Patient takes calcium supplementation, consider discontinuing in the setting of recurrent constipation. # CVA with left-sided residual weakness, dysphagia ? Occurred about 15 years ago. Has since required G-tube for feedings. ? Continue aspirin, statin, dipyridamole. #Mood disorder ? Resume home citalopram 30 mg valproic acid 125 mg. #Hypertension ? Hold spironolactone, metoprolol as BP stable. ? Consider alternatives to spironolactone and other diuretics due to recurrent constipation. DNR/DNI DVT prophylaxis: Lovenox 40 mg
[2024-03-15] VITALS: BP 114/64; PULSE 79; RESP 19; TEMP 36.5; O2SAT 91
[2024-03-15] MEDS: 0.9 % SODIUM CHLORIDE 1000ML 1,000 ML 999 ML IV ×2 (00:04→00:24)
[2024-03-15 04:00] VITALS: BMI 22.7
[2024-03-15 04:13] VITALS: BP 121/71; PULSE 63; RESP 15; TEMP 37; O2SAT 92
[2024-03-15] MEDS: BISACODYL 10MG SUPP 10 MG RC (05:00)
[2024-03-15 07:29] LABS: Basophils % 0.2 % (0.1-2.0); Eosinophils % 0.5 % (0.1-12.0); Hematocrit 39.8 % (37.0-47.0); Lymphocytes % 11.6 % (10-50); Mean Corpuscular HGB Conc 31.2 g/dL (31.8-35.4); Mean Corpuscular Hemoglobin 26.7 pg (27.0-31.2); Mean Corpuscular Volume 85.6 fl (81-99); Mean Platelet Volume 11.3 fl (7.4-10.4); Monocytes # 0.7 K/mm3 (0.1-1.0); Monocytes % 8.2 % (1.7-9.3); Neutrophils # 6.6 K/mm3 (1.8-7.8); Neutrophils % 79.3 % (37.0-80.0); Platelet Count 153 K/mm3 (142-424); Red Blood Count 4.65 M/mm3 (4.20-5.40); Red Cell Distribution Width 14.9 % (11.5-17.5); White Blood Count 8.4 K/mm3 (4.8-10.8)
[2024-03-15 07:38] LABS: Alanine Aminotransferase 25 U/L (12-78); Albumin Level 3.8 g/dl (3.5-5.0); Albumin/Globulin Ratio 1.5 (1.1-1.8); Alkaline Phosphatase 93 U/L (38-126); Aspartate Amino Transferase 37 U/L (14-36); Bilirubin,Total 0.5 mg/dl (0.2-1.3); Blood Urea Nitrogen 20 mg/dl (7-17); Carbon Dioxide 24 mmol/L (22.0-30.0); Chloride 108 mmol/L (98-107); Creatinine Clearance Estimated 108 mL/min (50-200); Estimated Glomerular Filt Rate 129 ml/min (>60); GFR (African American) 156 ML/MIN (>60); Globulin 2.5 g/dL (1.3-3.2); Glucose 83 mg/dl (74-100); Sodium 137 mmol/L (136-145); Total Protein,Serum 6.3 g/dl (6.3-8.2)
[2024-03-15 08:00] VITALS: BP 124/54; PULSE 71; RESP 19; TEMP 36.3; O2SAT 91
--- NOTE | 2024-03-15 08:07 | SW/DCPLANNER ---
Addendum entered by Pippa Dominguez 03/16/24 11:19: Updated patient information has been faxed to Lori back/ [facility]. Addendum entered by Pippa Dominguez 03/15/24 15:23: Updated patient information faxed to Lori back/ [facility]. Original Note: This patient currently resides at [facility] level of care. I will continue to follow up w/ Lori at [facility] until patient is medically stable for discharge. Discharge date is unknown at this time.
--- NOTE | 2024-03-15 09:03 | PC.NURSE ---
Dr. Vargas to review pt bowel regimen this am. possibly switch to mineral oil enema/bowel prep. hold 7am soap suds until regime created, related to pt having numerous large bowel movements throughout the night and this morning.
[2024-03-15] MEDS: CITALOPRAM 20MG TABLET 30 MG PO (09:11)
[2024-03-15] MEDS: DIPYRIDAMOLE 50 MG PO (09:11)
[2024-03-15] MEDS: ENOXAPARIN 40MG/0.4ML SYRINGE 40 MG SUBCUT (09:11)
[2024-03-15] MEDS: ASPIRIN EC 81MG TABLET 81 MG PO (09:11)
[2024-03-15] MEDS: BACLOFEN 10MG TABLET 10 MG G-TUBE ×2 (09:11→20:43)
[2024-03-15 09:15] LABS: Anion Gap 8.9 mEq/L (5-15); Potassium 3.9 mmoL/L (3.5-5.1)
[2024-03-15 09:50] LABS: Hemoglobin 12.4 g/dL (12.2-16.2)
[2024-03-15 09:55] VITALS: BMI 22.7
--- NOTE | 2024-03-15 10:06 | DIET.NUTRFU ---
lives at [facility], spoke to nursing staff there. She is NPO- unable to eat orally. Follows with Alicia for colonic dismobility. G-tube provides 100% of nutrition- Jevity 1.5 at 45ml x22 hr with flush of 250ml Q8H. IVF is provided currenlty. Mother is here to help with PMH, she normally has multiple BM daily at [place]. Had BM last night. Denies any N/V. Nurse at indicated wt stable and skin intact. Answers yes and no questions with head knod. She will need assistance with oral care. Start TF when feasible: Jevity 1.2 at 20ml/hr with goal rate 50ml/hr ATC providing 1200ml/1440kcal/66.6gm protein with 968ml formula water with flush of 150ml R3m=[id number] with total fluid 1568ml/day (29.5ml/kg)
[2024-03-15] MEDS: PEG-ELECTROLYTE SOLN 4000ML BOTTLE 4000 ML PO (12:04)
--- NOTE | 2024-03-15 12:08 | INFXCTL.NOTE ---
Golytely administered starting at 1200. 8oz to be given ever 2 hours via G tube. Per Brigitte, med to be administered until stool is light yellow in color with possible small ragged pieces of stool. pt tolerated first dose well.
--- NOTE | 2024-03-15 14:13 | EXP.GE.CONS ---
History of Present Illness *Admission Date: 03/14/24 *History of present illness: Mrs. Miller is a 53-year-old female with significant developmental delay and has had marked colonic dysmotility. She does have a G-tube. She is a resident of [facility]. She was having increased abdominal distention and hypoactive bowel sounds. The patient had seen me previously for panendoscopy in April 2019 and had moderate colonic redundancy/colonic dysmotility. The patient presented to the emergency department with CAT scan showing severe rectal fecal impaction with rectum measuring up to 10 cm in diameter and moderate gaseous distention of the colon and some air-fluid levels. The patient has been treated with soapsuds enemas with bowel movements overnight. [facility] Disclaimer: The information contained in this section may have been updated after the patient was seen, as this information can be updated by other users. Medical History Anemia Aspiration pneumonia CAD (coronary artery disease) CVA (cerebral vascular accident) Dyskinesia of esophagus Feeding by G-tube GERD (gastroesophageal reflux disease) HLD (hyperlipidemia) HTN (hypertension) Limitation due to disability Mild intellectual disabilities Social History Smoking Status: Never smoker alcohol intake: never substance use type: denies use current occupational status: disabled Travel in the last 8 weeks: None household members: none housing: assisted living facility current occupational exposures/hazards: No caffeine: No Have you lived/traveled outside US in past 30 days?: No Contact w/someone who lives/traveled outside US past 30 days?: No Exposure to someone with infectious disease in past 14 days?: No Do you have a fever (greater than 100.4 F or 38 C)?: No Have you tested positive for COVID-19: No Exposed to someone with COVID-19 in past 14 days?: No Do you have a sore throat?: No Do you have a cough?: No Do you have any weakness?: No Do you have any diarrhea?: No Are you experiencing any unusual bleeding?: No Do you have any muscle aches/pain?: No Do you have any abdominal pain?: Yes Are you experiencing loss of taste or smell?: No Meds Home Medications and Allergies Home Medications ?Medication ?Instructions ?Recorded ?Confirmed ?Type Lactobacillus acidoph-L.bulgaricus 1 tab G-tube BID PROBIOTIC 04/05/19 03/15/24 History 1 million cell tablet Miscellaneous [Unknown Home 60 ml G-tube BID 04/05/19 03/15/24 History Medication] aspirin 81 mg tablet,delayed 81 mg G-tube DAILY 04/05/19 03/15/24 History release baclofen 10 mg tablet 10 mg G-tube BID 04/05/19 03/15/24 History calcium 500 mg-vitamin D3 1,000 800 mg G-tube DAILY Supplement 04/05/19 03/15/24 History unit-vitamin K 40 mcg chewable tablet citalopram 10 mg tablet 10 mg G-tube DAILY 04/05/19 03/15/24 History citalopram 20 mg tablet 20 mg G-tube DAILY 04/05/19 03/15/24 History dextromethorphan 20 mg-quinidine 1 tab G-tube BID 04/05/19 03/15/24 History 10 mg capsule dipyridamole 50 mg tablet 50 mg G-tube DAILY CVA 04/05/19 03/15/24 History peg 400-propylene glycol 0.4 %-0.3 10 ml ophthalmic (eye) DAILY PRN 04/05/19 03/15/24 History % eye gel drops Dry Eyes polyethylene glycol 3350 17 gram 17 g G-tube DAILY 04/05/19 03/15/24 History oral powder packet prucalopride 2 mg tablet 2 mg G-tube DAILY 04/05/19 03/15/24 History simvastatin 10 mg tablet 10 mg G-tube DAILY Cholesterol 04/05/19 03/15/24 History valproic acid (as sodium salt) 250 125 mg G-tube HS 04/05/19 03/15/24 History mg/5 mL oral solution erythromycin ethylsuccinate 200 250 mg PO DAILY 03/15/24 03/15/24 History mg/5 mL oral powder for suspension famotidine 20 mg tablet 20 mg PO BID 03/15/24 03/15/24 History ferrous sulfate 300 mg (60 mg 160 mg PO MOWEFR 03/15/24 03/15/24 History iron)/5 mL oral liquid geriatric multivitamin-min 1 tab PO DAILY 03/15/24 03/15/24 History guaifenesin 100 mg/5 mL oral 600 mg PO BID 03/15/24 03/15/24 History liquid (Adult Tussin Chest Congestion) linaclotide 145 mcg capsule 145 mcg PO DAILY 03/15/24 03/15/24 History (Linzess) omega-3 fatty acids 1,000 mg 1,000 mg PO DAILY 03/15/24 03/15/24 History capsule sodium phosphates 19 gram-7 118 ml MA DAILY PRN Constipation 03/15/24 03/15/24 History gram/118 mL enema (Fleet Enema) spironolactone 50 mg tablet 50 mg PO DAILY 03/15/24 03/15/24 History New Prescriptions to Start Prescriptions: Allergies Allergy/AdvReac Type Severity Reaction Status Date / Time atropine (From Lomotil) Allergy Unknown Verified 02/02/23 13:44 diphenoxylate (From Lomotil) Allergy Unknown Verified 02/02/23 13:44 Sulfa (Sulfonamide Allergy Unknown Verified 02/02/23 13:44 Antibiotics) Exam (Inpt) Vital signs and Labs for Last 24 Hours: Temp Pulse Resp BP Pulse Ox O2 Del Method 97.4 F L 71 19 124/54 L 91 L Room Air 03/15/24 08:00 03/15/24 08:00 03/15/24 08:00 03/15/24 08:00 03/15/24 08:00 03/15/24 11:00 Laboratory Results - last 24 hr 03/14/24 17:17: WBC 14.6 H, RBC 5.25, Hgb 14.1, Hct 44.2, MCV 84.2, MCH 26.9 L, MCHC 31.9, RDW 15.2, Plt Count 184, MPV 10.8 H, Neut % (Auto) 86.8 H, Lymph % (Auto) 4.4 L, [place] % (Auto) 8.4, Eos % (Auto) 0.0 L, Baso % (Auto) 0.1, Neut # (Auto) 12.7 H, Lymph # (Auto) 0.6 L, [place] # (Auto) 1.2 H, Eos # (Auto) 0.0, Baso # (Auto) 0.0, Sodium 140, Potassium 3.7, Chloride 103, Carbon Dioxide 27, Anion Gap 13.7, BUN 28 H, Creatinine 0.60, Estimated Creat Clear 91, Estimated GFR 105, Est GFR ( Amer) 127, Glucose 125 H, Calcium 9.2, Total Bilirubin 0.5, AST 39 H, ALT 28, Alkaline Phosphatase 107, Total Protein 7.4, Albumin 4.2, Globulin 3.2, Albumin/Globulin Ratio 1.3, Lipase 60 03/15/24 06:56: WBC 8.4 D, RBC 4.65, Hgb 12.4 D, Hct 39.8, MCV 85.6, MCH 26.7 L, MCHC 31.2 L, RDW 14.9, Plt Count 153, MPV 11.3 H, Neut % (Auto) 79.3, Lymph % (Auto) 11.6, [place] % (Auto) 8.2, Eos % (Auto) 0.5, Baso % (Auto) 0.2, Neut # (Auto) 6.6, Lymph # (Auto) 1.0, [place] # (Auto) 0.7, Eos # (Auto) 0.0, Baso # (Auto) 0.0, Sodium 137, Potassium 3.9, Chloride 108 H, Carbon Dioxide 24, Anion Gap 8.9, BUN 20 H D, Creatinine 0.50 L, Estimated Creat Clear 108, Estimated GFR 129, Est GFR ( Amer) 156 D, Glucose 83 D, Calcium 9.0, Magnesium 2.0, Total Bilirubin 0.5, AST 37 H, ALT 25, Alkaline Phosphatase 93, Total Protein 6.3, Albumin 3.8, Globulin 2.5, Albumin/Globulin Ratio 1.5 I & O for Labs for Last 24 Hours: Intake & Output 03/12/24 03/13/24 03/14/24 03/15/24 23:59 23:59 23:59 23:59 Output Total 200 / 200 Balance -200 / -200 Weight 117 lb 115 lb 15.763 oz GI: Present distention Comments:: Normoactive bowel sounds, moderate gaseous distention, some tenderness in lower quadrants but without rebound or guarding, no masses Results Labs 03/15/24 06:56 03/15/24 06:56 Labs: Laboratory Results - last 24 hr 03/14/24 17:17: WBC 14.6 H, RBC 5.25, Hgb 14.1, Hct 44.2, MCV 84.2, MCH 26.9 L, MCHC 31.9, RDW 15.2, Plt Count 184, MPV 10.8 H, Neut % (Auto) 86.8 H, Lymph % (Auto) 4.4 L, [place] % (Auto) 8.4, Eos % (Auto) 0.0 L, Baso % (Auto) 0.1, Neut # (Auto) 12.7 H, Lymph # (Auto) 0.6 L, [place] # (Auto) 1.2 H, Eos # (Auto) 0.0, Baso # (Auto) 0.0, Sodium 140, Potassium 3.7, Chloride 103, Carbon Dioxide 27, Anion Gap 13.7, BUN 28 H, Creatinine 0.60, Estimated Creat Clear 91, Estimated GFR 105, Est GFR ( Amer) 127, Glucose 125 H, Calcium 9.2, Total Bilirubin 0.5, AST 39 H, ALT 28, Alkaline Phosphatase 107, Total Protein 7.4, Albumin 4.2, Globulin 3.2, Albumin/Globulin Ratio 1.3, Lipase 60 03/15/24 06:56: WBC 8.4 D, RBC 4.65, Hgb 12.4 D, Hct 39.8, MCV 85.6, MCH 26.7 L, MCHC 31.2 L, RDW 14.9, Plt Count 153, MPV 11.3 H, Neut % (Auto) 79.3, Lymph % (Auto) 11.6, [place] % (Auto) 8.2, Eos % (Auto) 0.5, Baso % (Auto) 0.2, Neut # (Auto) 6.6, Lymph # (Auto) 1.0, [place] # (Auto) 0.7, Eos # (Auto) 0.0, Baso # (Auto) 0.0, Sodium 137, Potassium 3.9, Chloride 108 H, Carbon Dioxide 24, Anion Gap 8.9, BUN 20 H D, Creatinine 0.50 L, Estimated Creat Clear 108, Estimated GFR 129, Est GFR ( Amer) 156 D, Glucose 83 D, Calcium 9.0, Magnesium 2.0, Total Bilirubin 0.5, AST 37 H, ALT 25, Alkaline Phosphatase 93, Total Protein 6.3, Albumin 3.8, Globulin 2.5, Albumin/Globulin Ratio 1.5 Assessment and Plan *Assessment and plan (1) Fecal impaction in rectum: Status: Acute Category: Medical Code(s): K56.41 - Fecal impaction (2) Colon distention: Status: Acute Category: Medical Code(s): K63.89 - Other specified diseases of intestine (3) Colonic dysmotility: Status: Acute Category: Medical Code(s): K59.9 - Functional intestinal disorder, unspecified Plan 1. Fecal impaction. It appears that she has had successful treatment with soapsuds enemas. I would consider an emollient such as mineral oil enemas or even lactulose enemas for severe impaction. Once stool begins to pass, we can then begin treatment per oral with bowel preparation for full cleansing of the colon. I would recommend GoLytely to get her completely emptied and cleared. The patient appears to be on Linzess in the nursing facility. Prucalopride (Motegrity) may help with the colonic dysmotility but is a treatment/medication that is hard to get approved via insurance. For severe outlet dysfunction constipation with recurrent colonic obstruction, we may even need to consider elective diverting colostomy since this is pelvic neuromuscular and pelvic floor physical therapy would not likely be feasible.
--- NOTE | 2024-03-15 18:15 | PC.NURSE ---
pt resting on her left side in bed, watching tv. mom at bedside. pt tolerating RA with sats >90%. pt has denied any abdominal pain the entire shift. abdomen stiff and distended. skin intact throughout. pt has had 2 moderate soft bms this shift. bowel prep started at 12pm, with 8oz given every 2 hours. minimal urine output. purewick in place. pt turned q2. no complaints or needs at this time. call light within reach.
[2024-03-15 19:33] VITALS: BP 122/68; PULSE 72; RESP 19; TEMP 36.6; O2SAT 95
--- NOTE | 2024-03-15 19:56 | EXP.ACUTE.PN ---
Subjective *Date: 03/15/24 *Time: 22:37 Interval history: No vomiting today. Patient had 2 large bowel movements after enemas last night. Holding tube feeds. Initiating bowel regimen. Father at bedside, discussed plan. Stable on room air. Alert and interactive Medical Exam Vital signs and Labs for Last 24 Hours: Vital Signs Temp Pulse Pulse Resp BP BP Pulse Ox 03/15/24 19:33 97.9 F 72 19 122/68 95 03/15/24 18:57 03/15/24 17:00 03/15/24 15:00 03/15/24 13:00 03/15/24 11:00 03/15/24 09:00 03/15/24 08:00 03/15/24 08:00 97.4 F L 71 19 124/54 L 91 L 03/15/24 06:35 03/15/24 05:00 03/15/24 04:13 98.6 F 63 15 121/71 92 L 03/15/24 03:00 03/15/24 01:00 03/15/24 00:00 97.7 F 79 19 114/64 91 L 03/14/24 23:00 03/14/24 21:57 97.1 F L 91 H 18 153/81 H 03/14/24 21:01 O2 Del Method 03/15/24 19:33 Room Air 03/15/24 18:57 Room Air 03/15/24 17:00 Room Air 03/15/24 15:00 Room Air 03/15/24 13:00 Room Air 03/15/24 11:00 Room Air 03/15/24 09:00 Room Air 03/15/24 08:00 Room Air 03/15/24 08:00 Room Air 03/15/24 06:35 Room Air 03/15/24 05:00 Room Air 03/15/24 04:13 Room Air 03/15/24 03:00 Room Air 03/15/24 01:00 Room Air 03/15/24 00:00 Room Air 03/14/24 23:00 Room Air 03/14/24 21:57 Room Air 03/14/24 21:01 Room Air Intake and Output 03/15/24 03/15/24 03/15/24 07:59 15:59 23:59 Intake Total 711 / 711 Output Total 200 / 200 0 / 200 Balance -200 / 511 0 / 511 711 / 511 Intake: Intake, Tube Irrigant Amount Output: Output, Urine Amount 200 / 200 0 / 200 Other: Number of Unmeasured Voids 0 0 Number of Bowel Movements 1 2 Weight 52.617 kg 52.61 kg Patient Weight 03/15/24 23:59 Weight 52.61 kg Laboratory Results - last 24 hr 03/15/24 06:56: WBC 8.4 D, RBC 4.65, Hgb 12.4 D, Hct 39.8, MCV 85.6, MCH 26.7 L, MCHC 31.2 L, RDW 14.9, Plt Count 153, MPV 11.3 H, Neut % (Auto) 79.3, Lymph % (Auto) 11.6, [place] % (Auto) 8.2, Eos % (Auto) 0.5, Baso % (Auto) 0.2, Neut # (Auto) 6.6, Lymph # (Auto) 1.0, [place] # (Auto) 0.7, Eos # (Auto) 0.0, Baso # (Auto) 0.0, Sodium 137, Potassium 3.9, Chloride 108 H, Carbon Dioxide 24, Anion Gap 8.9, BUN 20 H D, Creatinine 0.50 L, Estimated Creat Clear 108, Estimated GFR 129, Est GFR ( Amer) 156 D, Glucose 83 D, Calcium 9.0, Magnesium 2.0, Total Bilirubin 0.5, AST 37 H, ALT 25, Alkaline Phosphatase 93, Total Protein 6.3, Albumin 3.8, Globulin 2.5, Albumin/Globulin Ratio 1.5 I & O for Labs for Last 24 Hours: Intake & Output 03/12/24 03/13/24 03/14/24 03/15/24 23:59 23:59 23:59 23:59 Intake Total Output Total 200 / 200 Balance 511 Weight 53.07 kg 52.61 kg Constitutional: Present no acute distress, chronically ill appearing and cooperative Head: Absent normocephalic ENT: Present normal exam Respiratory: Present normal respiratory effort; Absent rhonchi, wheezes or crackles Cardiac: Present Reg Rate and Rhythm GI: Present soft, distention, tenderness and diminished bowel sounds Comments:: G-tube in place. Extremities: Absent normal inspection or full ROM Comment:: Pi?a, contractures in arms and legs Skin: Present intact; Absent erythema Neuro: Present Grossly Intact, alert and moves all extremities Comment:: Nonverbal Assessment and Plan *Assessment and plan (1) Fecal impaction in rectum: Status: Acute Category: Medical Code(s): K56.41 - Fecal impaction (2) Colonic dysmotility: Status: Acute Category: Medical Code(s): K59.9 - Functional intestinal disorder, unspecified (3) Constipation: Status: Acute Category: Medical Code(s): K59.00 - Constipation, unspecified (4) Gastrostomy tube dysfunction: Status: Acute Category: Medical Code(s): K94.23 - Gastrostomy malfunction (5) Gastrostomy tube in place: Status: Acute Category: Medical Code(s): Z93.1 - Gastrostomy status (6) Developmental delay, severe: Status: Acute Category: Medical Code(s): R62.50 - Unspecified lack of expected normal physiological development in childhood (7) Mood disorder: Status: Acute Category: Medical Code(s): F39 - Unspecified mood [affective] disorder Plan Sasha Miller is a 53-year-old female with medical history significant for developmental delays, 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 She is a resident at [facility] where they noticed abdominal distention and left-sided hypoactive bowel sounds. Due to developmental delays, patient unfortunately cannot provide history. Mother is at bedside who provides history. She notes patient has required a G-tube for feeding since her stroke about 15 years ago. They have followed up with Dr. Vargas for GI motility issues but had been lost to follow-up. Per my review, Dr. Vargas did colonoscopy and endoscopy and April 2019 where he found marked colonic dysmotility/inertia. Workup in the ED significant for WBC 14.6, CT abdomen/pelvis showing severe fecal impaction and 4 cm lesion in spleen. Case discussed with ED provider and decision was made to admit patient for severe symptomatic fecal impaction. 2 large bowel movements overnight. Initiated on bowel prep/cleanout regimen. GI assisting with care. Problems addressed as follows: #Severe fecal impaction #Colonic dysmotility/inertia #Large bowel obstruction ? Personally reviewed CT abdomen/pelvis shows severe fecal impaction measuring up to 10 cm in diameter with distal colonic obstruction and significant gaseous distention of colon ? Colonoscopy in April [address] Vargas showed marked colonic dysmotility/inertia, recommended continuing promotility therapy with Reglan and Motegrity. Since lost to follow-up. -Discussed case with GI, recommend beginning oral (per tube) bowel prep for cleaning of colon. GoLytely until colon is emptied. The patient appears to be on Linzess in the nursing facility. Recommend considering motility agent such as prucalopride (Motegrity). Per discussion, for severe outlet dysfunction constipation with recurrent colonic obstruction, we may even need to consider elective diverting colostomy since this is pelvic neuromuscular and pelvic floor physical therapy would not likely be feasible. - Continue daily bisacodyl 10 mg. ? Nothing via G-tube at this time given large bowel obstruction due to fecal impaction. ? Patient is having bowel movements, we will hold off on general surgery consultation for now for LBO. ? Patient takes calcium supplementation, consider discontinuing in the setting of recurrent constipation. -White count 8.4, kidney function normal with BUN 20, creatinine 0.5. Repeat CBC, CMP, magnesium ordered for the morning. Monitoring electrolytes closely given bowel regimen and risk for electrolyte shifts. Magnesium normal today at 2.0, potassium 3.9 # CVA with left-sided residual weakness, dysphagia ? Occurred about 15 years ago. Has since required G-tube for feedings. ? Continue aspirin, statin, dipyridamole. #Mood disorder ? Resume home citalopram 30 mg valproic acid 125 mg. #Hypertension ? Hold spironolactone, metoprolol as BP stable. DNR/DNI DVT prophylaxis: Lovenox 40 mg N.p.o.
[2024-03-15 20:00] VITALS: BP 140/58; PULSE 80; RESP 18; TEMP 36.4; O2SAT 92
[2024-03-15] MEDS: PRAVASTATIN 20MG TAB 20 MG PO (20:43)
[2024-03-15] MEDS: VALPROIC ACID 250 MG/5 ML SOL UDC 125 MG G-TUBE (20:43)
[2024-03-16] MEDS: BISACODYL 10MG SUPP 10 MG RC (02:59)
[2024-03-16 04:00] VITALS: BP 122/56; PULSE 69; RESP 18; TEMP 36.7; O2SAT 91; BMI 22.6
--- NOTE | 2024-03-16 04:40 | PC.NURSE ---
Patient has slept intermittently this shift, being turned Q2H. Patient has had x3 moderate to large bowel movements thus far in shift. 8oz of bowel prep being administered via g-tube Q2H. Patient is tolerating well. Purewick in place with minimal urine output all shift. mother remains at bedside throughout shift.
[2024-03-16 06:57] LABS: Basophils % 0.3 % (0.1-2.0); Eosinophils # 0.1 K/mm3 (0.0-0.4); Eosinophils % 0.8 % (0.1-12.0); Hematocrit 33.7 % (37.0-47.0); Lymphocytes # 0.8 K/mm3 (0.7-4.5); Lymphocytes % 10.9 % (10-50); Mean Corpuscular HGB Conc 31.8 g/dL (31.8-35.4); Mean Corpuscular Volume 84.9 fl (81-99); Monocytes # 0.5 K/mm3 (0.1-1.0); Monocytes % 6.1 % (1.7-9.3); Neutrophils % 81.6 % (37.0-80.0); Platelet Count 136 K/mm3 (142-424); Red Blood Count 3.97 M/mm3 (4.20-5.40); Red Cell Distribution Width 14.5 % (11.5-17.5); White Blood Count 7.4 K/mm3 (4.8-10.8)
[2024-03-16 07:13] LABS: Hemoglobin 10.7 g/dL (12.2-16.2)
[2024-03-16 07:32] LABS: Alanine Aminotransferase 19 U/L (12-78); Alkaline Phosphatase 85 U/L (38-126); Aspartate Amino Transferase 63 U/L (14-36); Bilirubin,Total 0.7 mg/dl (0.2-1.3); Blood Urea Nitrogen 17 mg/dl (7-17); Calcium 8.1 mg/dl (8.4-10.2); Carbon Dioxide 15 mmol/L (22.0-30.0); Chloride 109 mmol/L (98-107); Creatinine Clearance Estimated 134 mL/min (50-200); Estimated Glomerular Filt Rate 167 ml/min (>60); GFR (African American) 202 ML/MIN (>60); Magnesium 1.8 mg/dl (1.6-2.3); Sodium 138 mmol/L (136-145); Total Protein,Serum 5.8 g/dl (6.3-8.2)
[2024-03-16 08:00] VITALS: BP 126/70; PULSE 68; RESP 16; TEMP 36.8; O2SAT 92
[2024-03-16 08:01] LABS: Glucose 46 mg/dl (74-100)
[2024-03-16 08:02] LABS: Anion Gap 18.1 mEq/L (5-15); Potassium 4.1 mmoL/L (3.5-5.1)
[2024-03-16 08:03] LABS: Albumin Level 3.2 g/dl (3.5-5.0); Albumin/Globulin Ratio 1.2 (1.1-1.8); Globulin 2.6 g/dL (1.3-3.2)
[2024-03-16] MEDS: DEXTROSE 50% 50ML SYRINGE (CRASH CART) 50 ML IVP (08:08)
[2024-03-16] MEDS: DIPYRIDAMOLE 50 MG PO (09:17)
[2024-03-16] MEDS: ASPIRIN 81MG CHEWABLE TABLET 81 MG PO (09:17)
[2024-03-16] MEDS: BACLOFEN 10MG TABLET 10 MG G-TUBE ×2 (09:18→20:12)
[2024-03-16] MEDS: CITALOPRAM 20MG TABLET 30 MG PO (09:18)
[2024-03-16] MEDS: MAGNESIUM SULFATE IN WATER 2 GM/50 ML PIGGYBACK IV (09:19)
[2024-03-16] MEDS: ENOXAPARIN 40MG/0.4ML SYRINGE 40 MG SUBCUT (09:19)
[2024-03-16 09:44] LABS: POC Glucose,Bedside 188 (70-110)
--- NOTE | 2024-03-16 10:58 | DIET.NUTRFU ---
Patient continues to have BM, but still not cleared out. Continues on BM regimen and dextrose IVF started. TF continues on hold. TF to start once colon cleared. Provider has undated family on plan of care
[2024-03-16] MEDS: DEXTROSE 5%-LACTATED RINGERS 1,000 ML 75 ML IV (12:13)
--- NOTE | 2024-03-16 13:08 | XR_ITS ---
FINAL REPORT CLINICAL HISTORY: eval bowel gas pattern COMPARISON: 12/11/2022 FINDINGS: SINGLE VIEW ABDOMEN A single view of the abdomen was obtained. There is gaseous distention throughout redundant colon. There are no abnormally dilated loops of small bowel. No abnormal calcifications are identified. G-tube is present. IMPRESSION: Gaseous distention throughout redundant colon. Reviewed, Interpreted and Dictated by Cornelius Mays MD Transcribed by Ambreen Betancourt Authenticated and [facility]
--- NOTE | 2024-03-16 13:09 | P.PN_ITS ---
Subjective *Date: 03/16/24 *Time: 15:18 Interval history: No vomiting today. Continuing to have multiple loose stools. Still having brown stool and bowel movement. Medical Exam Vital signs and Labs for Last 24 Hours: Vital Signs Temp Pulse Resp BP Pulse Ox O2 Del Method 03/16/24 11:00 Room Air 03/16/24 09:00 Room Air 03/16/24 08:00 98.2 F 68 16 126/70 92 L Room Air 03/16/24 07:00 Room Air 03/16/24 05:00 Room Air 03/16/24 04:00 98.1 F 69 18 122/56 L 91 L Room Air 03/16/24 03:00 Room Air 03/16/24 01:00 Room Air 03/15/24 23:00 Room Air 03/15/24 21:00 Room Air 03/15/24 20:54 Room Air 03/15/24 20:00 97.5 F L 80 18 140/58 L 92 L Room Air 03/15/24 19:33 97.9 F 72 19 122/68 95 Room Air 03/15/24 18:57 Room Air 03/15/24 17:00 Room Air 03/15/24 15:00 Room Air Intake and Output 03/15/24 03/16/24 03/16/24 23:59 07:59 15:59 Intake Total 711 / 801 90 / 90 Output Total 200 / 500 500 / 700 200 / 700 Balance 511 / 301 -410 / -610 -200 / -610 Intake: Intake, Tube Irrigant Amount 711 / 801 90 / 90 Output: Output, Urine Amount 200 / 500 500 / 700 200 / 700 Other: Number of Unmeasured Voids 0 Number of Bowel Movements 2 1 Weight 52.3 kg Patient Weight 03/16/24 23:59 Weight 52.3 kg Laboratory Results - last 24 hr 03/16/24 06:39: WBC 7.4, RBC 3.97 L, Hgb 10.7 L D, Hct 33.7 L, MCV 84.9, MCH 27.0, MCHC 31.8, RDW 14.5, Plt Count 136 L, MPV 11.0 H, Neut % (Auto) 81.6 H, Lymph % (Auto) 10.9, [place] % (Auto) 6.1, Eos % (Auto) 0.8, Baso % (Auto) 0.3, Neut # (Auto) 6.0, Lymph # (Auto) 0.8, [place] # (Auto) 0.5, Eos # (Auto) 0.1, Baso # (Auto) 0.0, Sodium 138, Potassium 4.1, Chloride 109 H, Carbon Dioxide 15 L, Anion Gap 18.1 H, BUN 17, Creatinine 0.40 L, Estimated Creat Clear 134, Estim ated GFR 167, Est GFR ( Amer) 202 D, Glucose 46 L* D, Calcium 8.1 L, Magnesium 1.8, Total Bilirubin 0.7, AST 63 H D, ALT 19, Alkaline Phosphatase 85, Total Protein 5.8 L, Albumin 3.2 L D, Globulin 2.6, Albumin/Globulin Ratio 1.2 03/16/24 09:37: POC Glucose 188 H I & O for Labs for Last 24 Hours: Intake & Output 03/13/24 03/14/24 03/15/24 03/16/24 23:59 23:59 23:59 23:59 Intake Total 711 / 801 90 / 90 Output Total 400 / 500 700 / 700 Balance 311 / 301 -610 / -610 Weight 53.07 kg 52.61 kg 52.3 kg Constitutional: Present no acute distress, chronically ill appearing and cooperative Head: Absent normocephalic ENT: Present normal exam Respiratory: Present normal respiratory effort; Absent rhonchi, wheezes or crackles Cardiac: Present Reg Rate and Rhythm GI: Present soft, distention, tenderness and diminished bowel sounds Comments:: G-tube in place. Extremities: Absent normal inspection or full ROM Comment:: Pi?a, contractures in arms and legs Skin: Present intact; Absent erythema Neuro: Present Grossly Intact, alert and moves all extremities Comment:: Nonverbal Assessment and Plan *Assessment and plan (1) Fecal impaction in rectum: Status: Acute Category: Medical Code(s): K56.41 - Fecal impaction (2) Colonic dysmotility: Status: Acute Category: Medical Code(s): K59.9 - Functional intestinal disorder, unspecified (3) Constipation: Status: Acute Category: Medical Code(s): K59.00 - Constipation, unspecified (4) Gastrostomy tube dysfunction: Status: Acute Category: Medical Code(s): K94.23 - Gastrostomy malfunction (5) Gastrostomy tube in place: Status: Acute Category: Medical Code(s): Z93.1 - Gastrostomy status (6) Developmental delay, severe: Status: Acute Category: Medical Code(s): R62.50 - Unspecified lack of expected normal physiological development in childhood (7) Mood disorder: Status: Acute Category: Medical Code(s): F39 - Unspecified mood [affective] disorder Plan Sasha Miller is a 53-year-old female with medical history significant for developmental delays, 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 She is a resident at [facility] where they noticed abdominal distention and left-sided hypoactive bowel sounds. Due to developmental delays, patient unfortunately cannot provide history. Mother is at bedside who provides history. She notes patient has required a G-tube for feeding since her stroke about 15 years ago. They have followed up with Dr. Vargas for GI motility issues but had been lost to follow-up. Per my review, Dr. Vargas did colonoscopy and endoscopy and April 2019 where he found marked colonic dysmotility/inertia. Workup in the ED significant for WBC 14.6, CT abdomen/pelvis showing severe fecal impaction and 4 cm lesion in spleen. Case discussed with ED provider and decision was made to admit patient for severe symptomatic fecal impaction. Having multiple bowel movements daily. Bowel prep appears to be working to clean bowels out. Still having dark stool. Continues to require inpatient management. GI assisting with care. Problems addressed as follows: #Severe fecal impaction #Colonic dysmotility/inertia #Large bowel obstruction ? CT showing 10 cm bowel. Will obtain repeat KUB today to evaluate bowel gas pattern. Per my review of KUB, shows gaseous distention that is better from freight coordinator film comparison with CT ? Colonoscopy in April [address] Vargas showed marked colonic dysmotility/inertia, recommended continuing promotility therapy with Reglan and Motegrity. Since lost to follow-up. -Discussed case with GI, recommend beginning oral (per tube) bowel prep for cleaning of colon. GoLytely until colon is emptied. The patient appears to be on Linzess in the nursing facility. Recommend considering motility agent such as prucalopride (Motegrity) at discharge. - Continue GoLytely. Will initiate tube feeds tonight. - Continue daily bisacodyl 10 mg. ? Patient is having bowel movements, we will hold off on general surgery consultation for now for LBO. ? Patient takes calcium supplementation, consider discontinuing in the setting of recurrent constipation. - White count 7.4. Hemoglobin 10.7. Kidney function normal BUN 17, creatinine 0.4 Repeat CBC, CMP, magnesium ordered for the morning. Monitoring electrolytes closely given bowel regimen and risk for electrolyte shifts. Magnesium normal today at 1.8, potassium 4.1. # CVA with left-sided residual weakness, dysphagia: Occurred about 15 years ago. Has since required G-tube for feedings. Continue aspirin, statin, dipyridamole. #Mood disorder: Continue home citalopram 30 mg valproic acid 125 mg. #Hypertension: Hold spironolactone, metoprolol as BP stable. DNR/DNI DVT prophylaxis: Lovenox 40 mg resume g-tube feedings
--- NOTE | 2024-03-16 13:49 | P.PN_ITS ---
Subjective *Date: 03/16/24 *Time: 13:49 Interval history: Spoke with nurse by phone on Ms. Miller. She has completed most of GoLytely and is having multiple bowel movements now. No abdominal complaints. Reviewed repeat KUB. Exam Data for Last 24 hours Vital signs and Labs for Last 24 Hours: Temp Pulse Resp BP Pulse Ox O2 Del Method 98.2 F 68 16 126/70 92 L Room Air 03/16/24 08:00 03/16/24 08:00 03/16/24 08:00 03/16/24 08:00 03/16/24 08:00 03/16/24 11:00 Laboratory Results - last 24 hr 03/16/24 06:39: WBC 7.4, RBC 3.97 L, Hgb 10.7 L D, Hct 33.7 L, MCV 84.9, MCH 27.0, MCHC 31.8, RDW 14.5, Plt Count 136 L, MPV 11.0 H, Neut % (Auto) 81.6 H, Lymph % (Auto) 10.9, [place] % (Auto) 6.1, Eos % (Auto) 0.8, Baso % (Auto) 0.3, Neut # (Auto) 6.0, Lymph # (Auto) 0.8, [place] # (Auto) 0.5, Eos # (Auto) 0.1, Baso # (Auto) 0.0, Sodium 138, Potassium 4.1, Chloride 109 H, Carbon Dioxide 15 L, Anion Gap 18.1 H, BUN 17, Creatinine 0.40 L, Estimated Creat Clear 134, Estimated GFR 167, Est GFR ( Amer) 202 D, Glucose 46 L* D, Calcium 8.1 L , Magnesium 1.8, Total Bilirubin 0.7, AST 63 H D, ALT 19, Alkaline Phosphatase 85, Total Protein 5.8 L, Albumin 3.2 L D, Globulin 2.6, Albumin/Globulin Ratio 1.2 03/16/24 09:37: POC Glucose 188 H I & O for Last 24 hours: Intake & Output 03/13/24 03/14/24 03/15/24 03/16/24 23:59 23:59 23:59 23:59 Intake Total 711 / 801 90 / 90 Output Total 400 / 500 700 / 700 Balance 311 / 301 -610 / -610 Weight 117 lb 115 lb 15.763 oz 115 lb 4.828 oz Assessment and Plan *Assessment and plan (1) Fecal impaction in rectum: Status: Acute Category: Medical Code(s): K56.41 - Fecal impaction (2) Colonic dysmotility: Status: Acute Category: Medical Code(s): K59.9 - Functional intestinal disorder, unspecified (3) Colon distention: Status: Acute Category: Medical Code(s): K63.89 - Other specified diseases of intestine Plan 1. Fecal impaction with clearance and now having multiple bowel movements from above. Repeat KUB shows distended gas-filled colon without significant air- fluid levels. We do consider neostigmine for colonic ileus but I do not feel that is necessitated. I did discuss case with Dr. Briggs yesterday and if patient does have recurrent hospitalizations for fecal impaction and markedly impaired outlet dysfunction defecatory difficulties, we may consider additional options (i.e. neuromodulation or diverting colostomy).
[2024-03-16 16:00] VITALS: BP 111/60; PULSE 68; RESP 20; TEMP 36.8; O2SAT 94
--- NOTE | 2024-03-16 16:20 | PC.NURSE ---
ALERT BUT NON-VERBAL. ABLE TO ANSWER YES/NO QUESTIONS WITH HEAD NODS AND SHAKES. TUBE FEED RESUMED PER MD AT SETTING RECOMMENDED BY HOSPITALITY SERVICES MANAGER. Q2 TURN. SHE HAS DENIED PAIN. ABD MASSAGED PER MD V/O.
[2024-03-16 20:00] VITALS: BP 120/62; PULSE 65; RESP 16; TEMP 36.5; O2SAT 96
[2024-03-16] MEDS: PRAVASTATIN 20MG TAB 20 MG PO (20:12)
[2024-03-16] MEDS: VALPROIC ACID 250 MG/5 ML SOL UDC 125 MG G-TUBE (20:13)
[2024-03-17 04:00] VITALS: BP 125/61; PULSE 58; RESP 16; TEMP 36.7; O2SAT 95; BMI 22.4
--- NOTE | 2024-03-17 06:25 | PC.NURSE ---
Addendum entered by Tosin Campbell RN 03/17/24 06:29: Purewick in place to drain urine. Original Note: Pt. is alert but non-verbal. Pt. pleasant and able to shake head yes and no to questions. . Pt. on GT feeds. at 20 ml/hr. Pt. getting water bole of 150 ml q 6 hours. Tolerating feeds. well. Pt.moving bowels overnight. stools loose. VSS. Personal items and call william in reach. Pt's mother at bedside overnight.
[2024-03-17 07:15] LABS: Basophils % 0.3 % (0.1-2.0); Eosinophils # 0.2 K/mm3 (0.0-0.4); Eosinophils % 2.6 % (0.1-12.0); Hematocrit 33.1 % (37.0-47.0); Hemoglobin 10.4 g/dL (12.2-16.2); Lymphocytes # 0.8 K/mm3 (0.7-4.5); Lymphocytes % 14.3 % (10-50); Mean Corpuscular HGB Conc 31.4 g/dL (31.8-35.4); Mean Corpuscular Hemoglobin 26.3 pg (27.0-31.2); Mean Corpuscular Volume 83.8 fl (81-99); Mean Platelet Volume 11.2 fl (7.4-10.4); Monocytes # 0.5 K/mm3 (0.1-1.0); Monocytes % 8.4 % (1.7-9.3); Neutrophils # 4.2 K/mm3 (1.8-7.8); Neutrophils % 74.2 % (37.0-80.0); Platelet Count 150 K/mm3 (142-424); Red Blood Count 3.95 M/mm3 (4.20-5.40); Red Cell Distribution Width 14.6 % (11.5-17.5); White Blood Count 5.7 K/mm3 (4.8-10.8)
[2024-03-17 07:17] LABS: Albumin Level 3.1 g/dl (3.5-5.0); Chloride 107 mmol/L (98-107); Sodium 134 mmol/L (136-145)
[2024-03-17 07:18] LABS: Potassium 3.5 mmoL/L (3.5-5.1)
[2024-03-17 07:20] LABS: Alanine Aminotransferase 19 U/L (12-78); Albumin/Globulin Ratio 1.2 (1.1-1.8); Alkaline Phosphatase 79 U/L (38-126); Anion Gap 6.5 mEq/L (5-15); Aspartate Amino Transferase 24 U/L (14-36); Bilirubin,Total 0.3 mg/dl (0.2-1.3); Blood Urea Nitrogen 11 mg/dl (7-17); Calcium 8.6 mg/dl (8.4-10.2); Carbon Dioxide 24 mmol/L (22.0-30.0); Creatinine Clearance Estimated 107 mL/min (50-200); Estimated Glomerular Filt Rate 129 ml/min (>60); GFR (African American) 156 ML/MIN (>60); Globulin 2.6 g/dL (1.3-3.2); Glucose 98 mg/dl (74-100); Magnesium 1.8 mg/dl (1.6-2.3); Total Protein,Serum 5.7 g/dl (6.3-8.2)
[2024-03-17 08:00] VITALS: BP 112/57; PULSE 49; RESP 16; TEMP 36.9; O2SAT 94
[2024-03-17] MEDS: DIPYRIDAMOLE 50 MG PO (10:01)
[2024-03-17] MEDS: ASPIRIN 81MG CHEWABLE TABLET 81 MG PO (10:02)
[2024-03-17] MEDS: BACLOFEN 10MG TABLET 10 MG G-TUBE (10:02)
[2024-03-17] MEDS: CITALOPRAM 20MG TABLET 30 MG PO (10:02)
[2024-03-17] MEDS: ENOXAPARIN 40MG/0.4ML SYRINGE 40 MG SUBCUT (10:12)
[2024-03-17] MEDS: POLYETHYLENE GLYCOL 3350 17 GM PACKET PO (10:16)
--- NOTE | 2024-03-17 11:54 | EXP.DC.SUM ---
General Admission date:: 03/14/24 Discharge date: 03/17/24 HPI HPI HPI: Mrs. Miller is a 53-year-old female with significant developmental delay and has had marked colonic dysmotility. She does have a G-tube. She is a resident of [facility]. She was having increased abdominal distention and hypoactive bowel sounds. The patient had seen me previously for panendoscopy in April 2019 and had moderate colonic redundancy/colonic dysmotility. The patient presented to the emergency department with CAT scan showing severe rectal fecal impaction with rectum measuring up to 10 cm in diameter and moderate gaseous distention of the colon and some air-fluid levels. The patient has been treated with soapsuds enemas with bowel movements overnight. 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 She is a resident at [facility] where they noticed abdominal distention and left-sided hypoactive bowel sounds. Due to developmental delays, patient unfortunately cannot provide history. Mother is at bedside who provides history. She notes patient has required a G-tube for feeding since her stroke about 15 years ago. They have followed up with Dr. Vargas for GI motility issues but had been lost to follow-up. Per my review, Dr. Vargas did colonoscopy and endoscopy and April 2019 where he found marked colonic dysmotility/inertia. Workup in the ED significant for WBC 14.6, CT abdomen/pelvis showing severe fecal impaction and 4 cm lesion in spleen. Case discussed with ED provider and decision was made to admit patient for severe symptomatic fecal impaction. Patient responded to bowel cleanout with GoLytely. Had numerous bowel movements with improvement to stool flecked liquid. Still has gaseous distention but doing better. Resume home regimen with Motegrity and Linzess. Diet resumed tube feeds. Stable to discharge back to shelter for further management. GI assisted with care, follow-up as an outpatient. Problems addressed as follows: #Severe fecal impaction #Colonic dysmotility/inertia #Large bowel obstruction ? CT showing 10 cm bowel. Very large stool burden on presentation. Given soapsuds enema with multiple large bowel movements and improvement in distention. Started on GoLytely for bowel cleanout. Responded well. Repeat KUB showed gaseous distention but improvement. Patient was initiated on her tube feeds tolerating them well and still having regular bowel movements. Stable to discharge back to [facility] for further management. ? Colonoscopy in April [address] Vargas showed marked colonic dysmotility/inertia, recommended continuing promotility therapy with Reglan and Motegrity. Had been lost to follow-up. GI reconsulted this admission. Recommended bowel prep to clean her out. Patient showed good response. Resume Linzess and Motegrity at discharge. Follow-up with Dr. García outpatient. -If redevelops constipation, consider discontinuing her calcium supplement Labs normal on day of discharge with normal kidney function, BUN 11, creatinine 0.5. Magnesium and potassium 1.8 and 3.5 respectively. Phosphorus 3.1. Tolerating tube feeds. # CVA with left-sided residual weakness, dysphagia: Occurred about 15 years ago. Has since required G-tube for feedings. Continue aspirin, statin, dipyridamole. #Mood disorder: Continue home citalopram 30 mg valproic acid 125 mg. #Hypertension: Held spironolactone during admission. Blood pressure and heart rate have remained stable. discontinue on discharge Total time spent on discharge 32 minutes in counseling, documentation, chart review, and direct care with patient. Exam Data for Last 24 hours Vital signs and Labs for Last 24 Hours: Temp Pulse Resp BP Pulse Ox O2 Del Method 98.4 F 49 L 16 112/57 L 94 L Room Air 03/17/24 08:00 03/17/24 08:00 03/17/24 08:00 03/17/24 08:00 03/17/24 08:00 03/17/24 08:00 Laboratory Results - last 24 hr 03/17/24 06:35: WBC 5.7, RBC 3.95 L, Hgb 10.4 L, Hct 33.1 L, MCV 83.8, MCH 26.3 L, MCHC 31.4 L, RDW 14.6, Plt Count 150, MPV 11.2 H, Neut % (Auto) 74.2, Lymph % (Auto) 14.3, Nance % (Auto) 8.4, Eos % (Auto) 2.6, Baso % (Auto) 0.3, Neut # (Auto) 4.2, Lymph # (Auto) 0.8, Nance # (Auto) 0.5, Eos # (Auto) 0.2, Baso # (Auto) 0.0, Sodium 134 L, Potassium 3.5, Chloride 107, Carbon Dioxide 24, Anion Gap 6.5, BUN 11 D, Creatinine 0.50 L D, Estimated Creat Clear 107, Estimated GFR 129, Est GFR ( Amer) 156 D, Glucose 98 D, Calcium 8.6, Magnesium 1.8, Total Bilirubin 0.3, AST 24 D, ALT 19, Alkaline Phosphatase 79, Total Protein 5.7 L, Albumin 3.1 L, Globulin 2.6, Albumin/Globulin Ratio 1.2 I & O for Last 24 hours: Intake & Output 03/14/24 03/15/24 03/16/24 03/17/24 23:59 23:59 23:59 23:59 Intake Total 711 / 801 90 / 90 Output Total 400 / 500 700 / 700 350 / 350 Balance 311 / 301 -610 / -610 -350 / -350 Weight 53.07 kg 52.61 kg 52.3 kg 51.846 kg Constitutional Constitutional: no acute distress, chronically ill appearing and cooperative *Routine HEENT Exam Head: Present normocephalic Eye: Present EOMI and PERRL ENT: Present mucous membranes dry *Routine Neck Exam Neck: Present supple; Absent lymphadenopathy *Routine Respiratory Exam Respiratory: Present CTA bilaterally; Absent respiratory distress, rhonchi, stridor, wheezes or crackles *Routine Cardiovascular Exam Cardiovascular: Present RRR *Routine Abdominal Exam Abdominal: Present soft, normoactive bowel sounds and distended; Absent tenderness Comments: G-tube in place *Routine Rectal Exam Patient deferred: visual exam *Routine Exam Patient deferred: external exam *Routine Extremities Exam Extremities: Absent cyanosis, clubbing or edema *Routine Skin Exam Skin: Present warm; Absent rash *Routine Neurological Exam Neurological: Present alert Comments: Baseline mentation and interaction, contractures in limbs Results Data Completed and Pending Labs on day of discharge: Labs from last 24 hours 03/17/24 06:35 WBC 5.7 RBC 3.95 L Hgb 10.4 L Hct 33.1 L MCV 83.8 MCH 26.3 L MCHC 31.4 L RDW 14.6 Plt Count 150 MPV 11.2 H Neut % (Auto) 74.2 Lymph % (Auto) 14.3 Nance % (Auto) 8.4 Eos % (Auto) 2.6 Baso % (Auto) 0.3 Neut # (Auto) 4.2 Lymph # (Auto) 0.8 Nance # (Auto) 0.5 Eos # (Auto) 0.2 Baso # (Auto) 0.0 Sodium 134 L Potassium 3.5 Chloride 107 Carbon Dioxide 24 Anion Gap 6.5 BUN 11 D Creatinine 0.50 L D Estimated Creat Clear 107 Estimated GFR 129 Est GFR ( Amer) 156 D Glucose 98 D Calcium 8.6 Magnesium 1.8 Total Bilirubin 0.3 AST 24 D ALT 19 Alkaline Phosphatase 79 Total Protein 5.7 L Albumin 3.1 L Globulin 2.6 Albumin/Globulin Ratio 1.2 DS: Diagnosis Discharge Diagnosis (1) Fecal impaction in rectum: Status: Acute Code(s): K56.41 - Fecal impaction (2) Colonic dysmotility: Status: Acute Code(s): K59.9 - Functional intestinal disorder, unspecified (3) Constipation: Status: Acute Code(s): K59.00 - Constipation, unspecified (4) Gastrostomy tube dysfunction: Status: Acute Code(s): K94.23 - Gastrostomy malfunction (5) Gastrostomy tube in place: Status: Acute Code(s): Z93.1 - Gastrostomy status (6) Developmental delay, severe: Status: Acute Code(s): R62.50 - Unspecified lack of expected normal physiological development in childhood (7) Mood disorder: Status: Acute Code(s): F39 - Unspecified mood [affective] disorder Meds Home Medications and Allergies Home Medications ?Medication ?Instructions ?Recorded ?Confirmed ?Type Lactobacillus acidoph-L.bulgaricus 1 tab G-tube BID PROBIOTIC 04/05/19 03/15/24 History 1 million cell tablet Miscellaneous [Unknown Home 60 ml G-tube BID 04/05/19 03/15/24 History Medication] aspirin 81 mg tablet,delayed 81 mg G-tube DAILY 04/05/19 03/15/24 History release baclofen 10 mg tablet 10 mg G-tube BID 04/05/19 03/15/24 History calcium 500 mg-vitamin D3 1,000 800 mg G-tube DAILY Supplement 04/05/19 03/15/24 History unit-vitamin K 40 mcg chewable tablet citalopram 10 mg tablet 10 mg G-tube DAILY 04/05/19 03/15/24 History citalopram 20 mg tablet 20 mg G-tube DAILY 04/05/19 03/15/24 History dextromethorphan 20 mg-quinidine 1 tab G-tube BID 04/05/19 03/15/24 History 10 mg capsule dipyridamole 50 mg tablet 50 mg G-tube DAILY CVA 04/05/19 03/15/24 History peg 400-propylene glycol 0.4 %-0.3 10 ml ophthalmic (eye) DAILY PRN 04/05/19 03/15/24 History % eye gel drops Dry Eyes polyethylene glycol 3350 17 gram 17 g G-tube DAILY 04/05/19 03/15/24 History oral powder packet prucalopride 2 mg tablet 2 mg G-tube DAILY 04/05/19 03/15/24 History simvastatin 10 mg tablet 10 mg G-tube DAILY Cholesterol 04/05/19 03/15/24 History valproic acid (as sodium salt) 250 125 mg G-tube HS 04/05/19 03/15/24 History mg/5 mL oral solution erythromycin ethylsuccinate 200 250 mg PO DAILY 03/15/24 03/15/24 History mg/5 mL oral powder for suspension famotidine 20 mg tablet 20 mg PO BID 03/15/24 03/15/24 History ferrous sulfate 300 mg (60 mg 160 mg PO MOWEFR 03/15/24 03/15/24 History iron)/5 mL oral liquid geriatric multivitamin-min 1 tab PO DAILY 03/15/24 03/15/24 History guaifenesin 100 mg/5 mL oral 600 mg PO BID 03/15/24 03/15/24 History liquid (Adult Tussin Chest Congestion) linaclotide 145 mcg capsule 145 mcg PO DAILY 03/15/24 03/15/24 History (Linzess) omega-3 fatty acids 1,000 mg 1,000 mg PO DAILY 03/15/24 03/15/24 History capsule sodium phosphates 19 gram-[address] DAILY PRN Constipation 03/15/24 03/15/24 History gram/118 mL enema (Fleet Enema) New Prescriptions to Start Prescriptions: Allergies Allergy/AdvReac Type Severity Reaction Status Date / Time atropine (From Lomotil) Allergy Unknown Verified 02/02/23 13:44 diphenoxylate (From Lomotil) Allergy Unknown Verified 02/02/23 13:44 Sulfa (Sulfonamide Allergy Unknown Verified 02/02/23 13:44 Antibiotics) Discharge Plan Disposition Patient Disposition: [facility] Condition: Fair Discharge Order Discharge Orders: Discharge Order (Routine); Ordered 03/17/24 Ordered By: Hood Briggs Follow up Plan Follow up with: Timo Vargas II, MD [Staff Physician] - Enter time for follow up Rogelio Kirk [Primary Care Provider] - 03/22/24 1:15 pm Prescriptions/Medication Reconciliation: Continued omega-3 fatty acids 1,000 mg Capsule 1,000 mg PO DAILY guaifenesin [Adult Tussin Chest Congestion] 100 mg/5 mL liquid 600 mg PO BID famotidine 20 mg tablet 20 mg PO BID ferrous sulfate 300 mg (60 mg iron)/5 mL Liquid 160 mg PO MOWEFR erythromycin ethylsuccinate 200 mg/5 mL suspension for reconstitution 250 mg PO DAILY Fleet Enema 19-7 gram/118 mL Enema [address] DAILY PRN (Reason: Constipation) geriatric multivitamin-min Tablet 1 tab PO DAILY Linzess 145 mcg capsule 145 mcg PO DAILY polyethylene glycol 3350 17 GM powder in packet 17 g G-tube DAILY citalopram 10 MG tablet 10 mg G-tube DAILY Rx Instructions: GIVE WITH 20MG TABLET TO EQUAL 30MG simvastatin 10 MG tablet 10 mg G-tube DAILY aspirin 81 MG tablet,delayed release (DR/EC) 81 mg G-tube DAILY citalopram 20 MG tablet 20 mg G-tube DAILY Rx Instructions: GIVE WITH 10MG TABLET TO EQUAL 30MG valproic acid (as sodium salt) 250 MG/5ML solution 125 mg G-tube HS baclofen 10 MG tablet 10 mg G-tube BID dipyridamole 50 MG tablet 50 mg G-tube DAILY Lactobacillus acidoph-L.bulgar 1 EACH tablet 1 tab G-tube BID dextromethorphan-quinidine 20 MG-10MG capsule 1 tab G-tube BID calcium-vitamin D3-vitamin K 1 EACH tablet,chewable 800 mg G-tube DAILY prucalopride 2 MG tablet 2 mg G-tube DAILY Miscellaneous [Unknown Home Medication] 1 EACH Each 60 ml G-tube BID Rx Instructions: HOUSE SUPPLEMENT 60 ML BID FOR WEIGHT MANAGEMENT peg 400-propylene glycol 10 ML drops,gel 10 ml ophthalmic (eye) DAILY PRN (Reason: Dry Eyes) Discontinued spironolactone 50 mg tablet 50 mg PO DAILY Problem Reconciliation Problems Reviewed?: Yes Patient Discharge Instructions ACTIVITY: Continue current activity DIET: continue same diet Patient Instructions: DI for Constipation Print Language: Citizen Of [place] Providers Primary Care Provider: Rogelio Kirk Admit Provider: Alhaji Hilario Attending Provider: Alhaji Hilario
== END 2024-03-17 13:43 ==
LOC: ER 16:25 → 2ND 22:13
PROVIDERS: Admitting Provider Student in an Organized Health Care Education/Training Program; Emergency Provider Emergency Medicine; PCP Family Medicine; Visit Provider Student in an Organized Health Care Education/Training Program
DX: K56.699 Other intestinal obstruction unspecified as to partial versus complete obstruction (principal); F39 Unspecified mood [affective] disorder; F89 Unspecified disorder of psychological development; I10 Essential (primary) hypertension; I69.313 Psychomotor deficit following cerebral infarction; Z79.899 Other long term (current) drug therapy; Z79.51 Long term (current) use of inhaled steroids; Z93.1 Gastrostomy status
CPT/HCPCS: 36415; 74018; 74177; 80053; 82962; 83690; 83735; 85025; 99285; G0378; J1650; J3475; J7030; Q9967